=== PATIENT | male | born 1940 | race Caucasian/White ===

== ENCOUNTER 2020-03-28 02:32 | Inpatient (IN) | payer MEDICARE, OTHER ==
[~2020-03-28] VITALS: Ht 177.8 cm; Wt 68.9 kg
--- NOTE | 2020-03-28 02:46 | NUR ---
Jose from a nursing facility for c/o SOB and AMS. Pt currently with a saturation of 91 to 94% on a nonrebreather mask with 10LPM , pt awake and alert and seems to understands quetions and follows commands. was placed in bed 7 on a monitor,
[2020-03-28] MEDS ORDERED: methylPREDNISolone SOD SUCC 125 MG/2ML VIAL IV ONE (03:00)
[2020-03-28] MEDS ORDERED: ALBUTEROL FS 2.5 MG/3 ML VIAL.NEB CONTNEB ONE (03:00)
[2020-03-28] MEDS ORDERED: LEVOFLOXACIN 750 MG /D5W 150ML PIGGYBACK IV ONE (03:00)
[2020-03-28] MEDS ORDERED: IPRATROPIUM NEB FS 0.5 MG/2.5 ML AMPUL.NEB NEB ONE (03:00)
[2020-03-28] MEDS ORDERED: methylPREDNISolone SOD SUCC 125 MG/2ML VIAL ONE (03:08)
[2020-03-28] MEDS ORDERED: LEVOFLOXACIN 750 MG /D5W 150ML 150 ML IV ONE (03:08)
[2020-03-28 03:12] LABS: ABG BASE EXCESS -0.9 mmol/L; ABG OXYGEN SATURATION 76.8 % (92.0-98.5); ABG PCO2 82.3 mmHg (35.0-45.0); ABG PH 7.167 (7.350-7.450); ABG PO2 46.1 mmHg (75.0-100.0); AaDO2 364.5 mmHg; COHb 0.8 % (0.5-1.5); MetHb 0.6 % (0.0-1.5); O2Hb 75.7 % (94.0-97.0); VENT MODE, BG 18/5 RR24/70%
[2020-03-28] MEDS ORDERED: IPRATROPIUM NEB FS 0.5 MG/2.5 ML AMPUL.NEB ONE (03:20)
[2020-03-28] MEDS ORDERED: ALBUTEROL FS 2.5 MG/3 ML VIAL.NEB ONE (03:20)
[2020-03-28 03:24] LABS: BASOPHILS # (AUTO) 0.1 /CMM (0.0-0.2); BASOPHILS % (AUTO) 0.6 % (0.0-2.0); EOSINOPHILS % (AUTO) 0.2 % (0.0-6.0); HEMATOCRIT 30 % (39-51); HEMOGLOBIN 9.6 g/dL (13.5-17.5); LYMPHOCYTES # (AUTO) 0.6 /CMM (0.8-4.8); LYMPHOCYTES % (AUTO) 4.7 % (20.0-44.0); MEAN CORPUSCULAR HGB CONC 32 g/dl (31.0-36.0); MEAN CORPUSCULAR VOLUME 91 fL (80-96); MONOCYTES # (AUTO) 0.6 /CMM (0.1-1.30); MONOCYTES % (AUTO) 4.6 % (2.0-12.0); NEUTROPHILS # (AUTO) 10.9 /CMM (1.8-8.9); NEUTROPHILS % (AUTO) 89.9 % (43.0-81.0); PLATELET COUNT (AUTO) 136 /CMM (150-450); RED BLOOD CELL COUNT(AUTO) 3.33 MIL/uL (4.5-6.0); WHITE BLOOD COUNT (AUTO) 12.1 K/uL (4.3-11.0)
[2020-03-28 03:44] LABS: CALCIUM, SERUM 9.5 mg/dL (8.5-10.1); CARBON DIOXIDE 30 mmol/L (21-32); CHLORIDE 109 mmol/L (98-107); GLUCOSE 141 mg/dL (74-106); POTASSIUM 4.9 mmol/L (3.5-5.1); SODIUM SERUM 144 mmol/L (136-145); UREA NITROGEN, BLOOD 33 mg/dL (7-18)
[2020-03-28 03:47] LABS: ABG BASE EXCESS -0.5 mmol/L; ABG OXYGEN SATURATION 97.1 % (92.0-98.5); ABG PH 7.295 (7.350-7.450); ABG PO2 103.7 mmHg (75.0-100.0); AaDO2 189.8 mmHg; COHb 0.2 % (0.5-1.5); MetHb 0.4 % (0.0-1.5); O2Hb 96.5 % (94.0-97.0); SITE, ABG Right Brachial
[2020-03-28 03:57] LABS: ALANINE AMINOTRANSFERASE 13 U/L (12-78); ALKALINE PHOSPHATASE 82 U/L (46-116); ASPARTATE AMINOTRANSFERASE 19 U/L (15-37); B-TYPE NATRIURETIC PEPTIDE 31922 PG/ML (0-125); BILIRUBIN,DIRECT 0.1 mg/dL (0.0-0.2); BILIRUBIN,TOTAL 0.2 mg/dL (0.2-1.0); TOTAL PROTEIN, SERUM 7.3 g/dL (6.4-8.2)
--- NOTE | 2020-03-28 04:01 | NUR ---
CALL FROM LAB. RAPID COVID NEGATIVE.
[2020-03-28] MEDS ORDERED: AMIO200T5 PO (04:15)
[2020-03-28] MEDS ORDERED: ASCO500C18 PO (04:15)
[2020-03-28] MEDS ORDERED: CEFT2FRO2 IV (04:15)
[2020-03-28] MEDS ORDERED: TAMS-12 PO (04:15)
[2020-03-28] MEDS ORDERED: DOCU100T2 PO (04:15)
[2020-03-28] MEDS ORDERED: ZINC220C6 PO (04:15)
[2020-03-28] MEDS ORDERED: LACT1CAP61 PO (04:15)
[2020-03-28] MEDS ORDERED: CRAN425C6 PO (04:15)
[2020-03-28] MEDS ORDERED: MULT-447 PO (04:15)
[2020-03-28] MEDS ORDERED: BUME1TAB8 PO ×2 (04:15)
[2020-03-28] MEDS ORDERED: CRAN3875 PO (04:15)
[2020-03-28] MEDS ORDERED: NIFE60TA2 PO (04:15)
[2020-03-28] MEDS ORDERED: FOLI0.8T23 PO (04:15)
[2020-03-28] MEDS ORDERED: ATOR80TA PO (04:15)
[2020-03-28] MEDS ORDERED: CARV25TA2 PO (04:15)
[2020-03-28] MEDS ORDERED: POLY17PO4 PO (04:15)
[2020-03-28] MEDS ORDERED: PANT40TA2 PO (04:15)
[2020-03-28] MEDS ORDERED: NIFE30TA2 PO (04:15)
[2020-03-28] MEDS ORDERED: ENOXAPARIN SODIUM 80 MG/0.8 ML DISP.SYRIN SQ ONE ×2 (04:16→04:30)
[2020-03-28] MEDS ORDERED: ONDANSETRON HCL/PF 4 MG/2 ML VIAL IVP PRN (04:30)
[2020-03-28] MEDS ORDERED: LORAZEPAM INJ 2 MG/ML VIAL IV PRN (05:00)
[2020-03-28] MEDS ORDERED: FUROSEMIDE 40 MG/4 ML VIAL IV ONE (05:00)
[2020-03-28] MEDS ORDERED: ALBUTEROL FS 2.5 MG/0.5 ML VIAL.NEB NEB PRN (05:00)
[2020-03-28] MEDS ORDERED: NOREPINEPHRINE 8 MG in IV NS 0.9% 242 ML IV PRN (05:00)
--- NOTE | 2020-03-28 05:02 | NUR ---
pt in bed sleeping, arouses easily. breathing evenly on bipap. no s/s of distress or discomfort noted. will cont to monitor ,
--- NOTE | 2020-03-28 06:47 | NUR ---
pt awake, alert and reseponsive. remained on BIPAP . breathing evenly. no SOB. no distress. denied any pain or discomfort. attempted to admonister the Lasix as ordered by NANCIE Villatoro. however the BP remained low. will cont to monitor ,
--- NOTE | 2020-03-28 06:51 | NUR ---
ICU bed : 258
[2020-03-28] MEDS ORDERED: ALBUTEROL SULFATE 8 GM HFA.AER.AD IH PRN (07:00)
[2020-03-28] MEDS ORDERED: CLON0.5T4 PO (07:31)
[2020-03-28] MEDS ORDERED: INSU100V27 SQ (07:31)
[2020-03-28] MEDS ORDERED: COLL30OI TP (07:31)
[2020-03-28] MEDS ORDERED: ACET-868 PO (07:31)
[2020-03-28] MEDS ORDERED: CEFT2VIA64 IV (07:31)
[2020-03-28] MEDS ORDERED: MAGN400O6 PO (07:31)
[2020-03-28] MEDS ORDERED: XEROFORM TD (07:31)
--- NOTE | 2020-03-28 07:39 | NUR ---
report given to Ameya @ ICU
--- NOTE | 2020-03-28 08:00 | NUR ---
RN NOTES GOT REPORT FROM [facility] FROM ER.RECEIVED PT WITH ACLS PROTOCOL. WITH BIPAP MASK HOWVER MENTIONED TO RT PROTOCOL OF THE HOSPITAL IF PT IS FROM [facility] AND COVID PCR IS PENDING CANT BE ON BIPAP MASK. RT CHANGED TO O2 MASK 5 L SAT WELL IN 98%. ALERT AND ORIENTED X3. NO SOB OR RESPIRATORY DISTRESS NOTED. SAFETY MEASUREMENTS ARE IMPLEMENTED PER HOSPITAL PROTOCOL.BED IS IN THE LOWEST POSITION. SIDE RAILS ARE UP X2.WILL CONTUNIE TO MONITOR
[2020-03-28 08:14] LABS: C-REACTIVE PROTEIN 6.5 mg/dL (0.0-0.9)
[2020-03-28] MEDS ORDERED: PANTOPRAZOLE 40 MG VIAL IV SCH (09:00)
[2020-03-28] MEDS: FUROSEMIDE 100 MG/10 ML VIAL IV SCH ×3 (09:08→15:39)
[2020-03-28] MEDS: CEFTRIAXONE 1 G in IV D5W 50 ML IV SCH (09:09)
--- NOTE | 2020-03-28 09:30 | NUR ---
RN NOTES MAMIE CALLED FROM NUCLEAR MEDICINE TO GET CONSENT FROM THE PT FOR NUCLEAR MEDICINE FOR PULMONARY WITH VENTILATION STUDY
[2020-03-28] MEDS: AZITHROMYCIN 500 MG in IV D5W 250 ML IV SCH (11:25)
[2020-03-28 12:00] VITALS: BP 108/53
[2020-03-28 12:31] LABS: PHOSPHORUS 5.6 mg/dL (2.5-4.9)
[2020-03-28 12:32] LABS: THYROID STIMULATING HORMONE 1.13 uIU/mL (0.358-3.74)
--- NOTE | 2020-03-28 13:00 | NUR ---
RN NOTES TOOK PT WITH MAMIE TO NUCLEAR MEDICINE WITH ACLS PROTOCOL.
--- NOTE | 2020-03-28 14:30 | NUR ---
RN notes transferred pt to [place] to [facility] 2 floor room 201 from nuclear medicine pulmonary with ventilation study Patient is A/O x4, on NC @ 5 L, tolerating well, SPO2 is 98%, denies pain, PICC line noted on R upper arm, intact and patent, PACEMAKER ON left upper chest noted no sob or distress noted. tranferred with acls protocol.
--- NOTE | 2020-03-28 14:30 | NUR ---
MS-2 pantograph transferrer notes Received patient from Rosanna RN via bed, from CT scan. Patient is A/O x4, on NC @ 5 L, tolerating well, SPO2 is 98%, denies pain, PICC line noted on R upper arm, intact and patent, PACEMAKER ON left upper chest noted, HOB elevated, bed is locked in lowest position , call light in reach, will cont to monitor
--- NOTE | 2020-03-28 15:00 | NUR ---
TELE-MONITOR READINGS : V PACING AT 68, RANGE FROM 68-90
[2020-03-28] MEDS: methylPREDNISolone SOD SUCC 40 MG/ML VIAL IV SCH ×3 (15:39→21:32)
[2020-03-28 16:00] VITALS: BP 134/77
--- NOTE | 2020-03-28 17:00 | NUR ---
WOUND ASSESSED, PICTURES PLACED IN THE CHART
--- NOTE | 2020-03-28 17:25 | NUR ---
RN NOTE SPOKE WITH PATIENT AND PT'S ANUP ([phone]) ABOUT PATIENT CODE STATUS, BOTH VERBALIZED DNR/DNI, ENDORSE TO MD
--- NOTE | 2020-03-28 18:47 | NUR ---
SPOKE WITH PT'S RESIDENCE FACILITY ([facility]) ABOUT VACCINATION STATUS, PATIENT DO NOT HAVE ANY CURRENT VACCINE, WILL ADMINISTER UPON DISCHARGE
--- NOTE | 2020-03-28 18:59 | NUR ---
RN CLOSING NOTES PATIENT REMAINS IN BED, A/OX3-4, NPO STATUS, ON NC @ 5L TOLERATING WELL, NO SOB OR RESP DISTRESS NOTED, SPO2 IS 97%, TELE-MONITOR READINGS: V-PACING, WITH OCCASIONAL PVC @ 69, PICC LINE IS FLUSHED WELL, DRESSING IS INTACT,SKIN CARE, MOUTH CARE AND PERENNIAL CARE PROVIDED,SAFETY MEASURES IMPLEMENTED, BED IN LOWEST POSITION, CALL LIGHT IN REACH, WILL ENDORSE TO PM SHIFT RN FOR FRANCIS
[2020-03-28 20:00] VITALS: BP 144/65
[2020-03-28] MEDS ORDERED: ENOXAPARIN SODIUM 80 MG/0.8 ML DISP.SYRIN SQ SCH (21:00)
[2020-03-28 22:00] VITALS: BP 144/55
[2020-03-29] VITALS (28 sets, daily range): BP systolic 141–172; BP diastolic 34–90
--- NOTE | 2020-03-29 01:36 | NUR ---
TELE SENIOR GROUP MANAGER NOTES GOT CALLED FROM [employer] [facility] AND GOT RESULT FOR PCR COVID THAT NEGATIVE.
--- NOTE | 2020-03-29 04:00 | NUR ---
tele neurophysiologist notes while PRINCIPAL DATA ARCHITECT cleaning the patient , pt stated I can't breath . checked vital signs BP 133/66, pulse 67 and 02 sat 78. pt is on 3 liters at this time. put pt on simple mask at 6 liters , and called RT and cemetery workers supervisor as well. Blood sugar checked 164. skin warm to touch .
--- NOTE | 2020-03-29 04:55 | NUR ---
tele executive vp notes ABG result came out , Respiratory acidosis, per RT Zhen, called personnel quality assurance auditor MD and called rag room supervisor as well.
[2020-03-29] MEDS: methylPREDNISolone SOD SUCC 40 MG/ML VIAL IV SCH ×3 (05:02→20:17)
--- NOTE | 2020-03-29 05:15 | NUR ---
tele bookbinder apprentice notes got ordered to transferred pt to ICU per MD ordered . called Pallet Sorter and transferred Pt to ICU room 257 tracy ACLS PROTOCOL.
--- NOTE | 2020-03-29 05:25 | NUR ---
TELE CLAMSHELL OPERATOR NOTES PT AWAKE AND ALERT AND AWARE THAT HE WILL TRANSFERRED HIM TO ICU BECAUSE HE NEEDS BIPAP MACHINE FOR HIS BREATHING. O2 SAT THIS TIME 90 %. DENIES ANY PAIN . TELE SR PER MONITOR. GAVE REPORT TO ICU NURSE FOR CONTINUITY OF CARE.
--- NOTE | 2020-03-29 05:30 | NUR ---
PEDIATRIC ACUTE CARE UNIT NURSE PT TRANSFERRED TO ICU FROM 2S FOR INCREASING RESPIRATORY DISTRESS. PT WAS ON SIMPLE MASK AT 6L ON TRANSFER. RECEIVED PT AWAKE AND ALERT. ABLE TO SPEAK. RESP SLIGHTLY LABORED, USING ACCESSORY MUSCLES RATE 20'S WITH SPO2 96%. ABG WAS DRAWN IN 2S AND RESULTS WERE RELAYED TO Wenceslao TAI DNP RESULTING IN AN ORDER TO TRANSFER TO ICU. PT COVID NEG PER PCR. PT PLACED ON BIPAP ON ARRIVAL TO THE ICU AT 20/5 RR18 FIO2 30%. PT STATED THAT HE FELT BETTER AFTER BEING PLACED ON BIPAP. ABG TO BE OBTAINED IN 1H.
--- NOTE | 2020-03-29 05:35 | NUR ---
TELE DIET ASSISTANT NOTES' CALLED PT ANUP TO LET HER KNOW THAT HER TRANSFERRED TO ICU BECAUSE HE NEEDS A BIPAP TO HELPED FOR HIS BREATHING AND AT THE SAME TIME FOR FURTHER EVALUATION. I ALSO VERIFIED TO HER THE CODE STATUS OF THE PT . AND SHE WANTS HIS TO BE DNR/DNI PER PT REQUEST. CALLED SECONDARY EDUCATION PROFESSOR MD TO GET ORDER.
--- NOTE | 2020-03-29 05:45 | NUR ---
BIG DATA SOLUTIONS ARCHITECT NOTES CODE DNR/ DNI ORDERED BY MD PER PT REQUEST AND REQUEST WELL. ENDORSE TO ICU NURSE .
--- NOTE | 2020-03-29 06:00 | NUR ---
RT NOTE Pt transferred to ICU 257 on simple mask @ 6lpm. Pt placed on Bipap on noted settings as charted per critical abg results and MD orders. Abg to be taken within 1 hr. Alarms are set and audible. Ambu bag bedside. Bipap plugged into red outlet. Will continue to monitor. Addendum: 03/29/20 at 0602 by LARRY WANG RT Amended: Links added.
[2020-03-29 06:08] LABS: ABG BASE EXCESS -1.7 mmol/L; ABG OXYGEN SATURATION 93.6 % (92.0-98.5); ABG PH 7.135 (7.350-7.450); ABG PO2 87.1 mmHg (75.0-100.0); AaDO2 133.7 mmHg; COHb 0.4 % (0.5-1.5); MetHb 0.2 % (0.0-1.5); SITE, ABG Right Radial
[2020-03-29 06:43] LABS: ABG BASE EXCESS 0.7 mmol/L; ABG OXYGEN SATURATION 96.2 % (92.0-98.5); ABG PCO2 40.6 mmHg (35.0-45.0); ABG PH 7.413 (7.350-7.450); ABG PO2 84.8 mmHg (75.0-100.0); AaDO2 81.4 mmHg; COHb 0.3 % (0.5-1.5); MetHb 0.3 % (0.0-1.5); O2Hb 95.6 % (94.0-97.0); SITE, ABG Right Brachial; VENT MODE, BG S/T 20/5 18 30%
[2020-03-29 07:25] LABS: BASOPHILS % (AUTO) 0.1 % (0.0-2.0); HEMATOCRIT 28 % (39-51); HEMOGLOBIN 8.9 g/dL (13.5-17.5); LYMPHOCYTES # (AUTO) 0.6 /CMM (0.8-4.8); LYMPHOCYTES % (AUTO) 10.9 % (20.0-44.0); MEAN CORPUSCULAR HGB CONC 32 g/dl (31.0-36.0); MEAN CORPUSCULAR VOLUME 91 fL (80-96); MONOCYTES # (AUTO) 0.1 /CMM (0.1-1.30); MONOCYTES % (AUTO) 2.1 % (2.0-12.0); NEUTROPHILS # (AUTO) 4.9 /CMM (1.8-8.9); NEUTROPHILS % (AUTO) 86.9 % (43.0-81.0); PLATELET COUNT (AUTO) 125 /CMM (150-450); RED BLOOD CELL COUNT(AUTO) 3.04 MIL/uL (4.5-6.0); WHITE BLOOD COUNT (AUTO) 5.7 K/uL (4.3-11.0)
--- NOTE | 2020-03-29 07:30 | NUR ---
RN OPENING NOTES RECEIVED PATIENT IN BED, A/OX4, ON BIPAP; TOLERATING SETTINGS WELL, SPO2 IS 100%, TELE MONITOR READINGS SR WITH BBB AND OCCASIONAL PVC, LEFT SIDE PACEMAKER NOTED,R SIDE PICC LINE NOTED, DRESSING INTACT, FLUSHING WELL. DIET STATUS (CCHO) NOTED.ALLERGIES NOTED, PATIENT IS ABLE TO MAKE HIS NEEDS KNOW, SAFETY MEASURES IN PLACE, BED IS LOCKED, IN LOWEST POSITION, HOB ELEVATED, WILL CONT TO MONITOR
--- NOTE | 2020-03-29 07:39 | NUR ---
AWAKE AND ALERT PLACED INTO NASAL CANNULA @ 3 LPM O2 FLOW. SPO 98% HR 70 BPM RR 20 - 23 BPM BIPAP ON STAND BY @ BEDSIDE. Addendum: 03/29/20 at 0741 by RONN MERCADO RT Amended: Links added.
[2020-03-29 07:40] LABS: ALANINE AMINOTRANSFERASE 17 U/L (12-78); ALKALINE PHOSPHATASE 72 U/L (46-116); ASPARTATE AMINOTRANSFERASE 23 U/L (15-37); BILIRUBIN,TOTAL 0.3 mg/dL (0.2-1.0); CALCIUM, SERUM 9.6 mg/dL (8.5-10.1); CARBON DIOXIDE 26 mmol/L (21-32); CHLORIDE 107 mmol/L (98-107); CREATININE 2.3 mg/dL (0.6-1.3); GLUCOSE 165 mg/dL (74-106); MAGNESIUM 2.2 mg/dL (1.8-2.4); PHOSPHORUS 4.9 mg/dL (2.5-4.9); POTASSIUM 4.4 mmol/L (3.5-5.1); SODIUM SERUM 140 mmol/L (136-145); TOTAL PROTEIN, SERUM 6.9 g/dL (6.4-8.2); UREA NITROGEN, BLOOD 47 mg/dL (7-18)
[2020-03-29] MEDS: CEFTRIAXONE 1 G in IV D5W 50 ML IV SCH (09:01)
[2020-03-29] MEDS: CLONIDINE HCL 0.2MG/24H PTWK 1 EA PATCH TD SCH (10:06)
[2020-03-29] MEDS: PANTOPRAZOLE 40 MG TABLET.DR PO SCH (10:06)
[2020-03-29] MEDS: NITROGLYCERIN 30 GM TUBE TP SCH ×2 (10:07→20:18)
[2020-03-29] MEDS: AZITHROMYCIN 500 MG in IV D5W 250 ML IV SCH (10:39)
--- NOTE | 2020-03-29 14:44 | NUR ---
transferred to [facility] to room 109, by myself, will cont to monitor
[2020-03-29 15:14] LABS: *SPE A/G RATIO 0.6 (0.7-1.7); *SPE ALBUMIN 2.4 g/dL (2.9-4.4); *SPE ALPHA-1-GLOBULIN 0.4 g/dL (0.0-0.4); *SPE ALPHA-2-GLOBULIN 0.7 g/dL (0.4-1.0); *SPE BETA GLOBULIN 1.1 g/dL (0.7-1.3); *SPE GLOBULIN, TOTAL 4.1 g/dL (2.2-3.9); *SPE M-SPIKE Not Observed g/dL (Not Observed); *SPEGAMMA GLOBULIN 1.9 g/dL (0.4-1.8)
--- NOTE | 2020-03-29 16:27 | NUR ---
SPO2 drops to low 80s, on 4L of NC, reapply non rebreather mask @ 10L with SPO2 of 100%, RT notified, MD notified BP is 166/66
[2020-03-29] MEDS ORDERED: ALBUTEROL FS 2.5 MG/0.5 ML VIAL.NEB NEB PRN (16:30)
[2020-03-29 17:15] LABS: ABG BASE EXCESS 1.1 mmol/L; ABG OXYGEN SATURATION 95.3 % (92.0-98.5); ABG PH 7.347 (7.350-7.450); ABG PO2 81.2 mmHg (75.0-100.0); AaDO2 580.8 mmHg; COHb 0.3 % (0.5-1.5); MetHb 0.1 % (0.0-1.5); O2Hb 94.9 % (94.0-97.0); SITE, ABG Right Brachial; VENT MODE, BG NON REBREATHER
--- NOTE | 2020-03-29 17:23 | NUR ---
PLACED INTO BIPAP DUE TO INCREASED WORK OF BREATHING WITH PREVIOUS SETTINGS BELOW: IPAP 20 EPAP 5 RATE 18 FIO2 30% AMBU BAG @ BEDSIDE. Addendum: 03/29/20 at 1725 by RONN MERCADO RT Amended: Links added.
--- NOTE | 2020-03-29 17:51 | NUR ---
Holding Vibramycin till Bipap is over
--- NOTE | 2020-03-29 19:01 | NUR ---
RN CLOSING NOTE PATIENT REMAIN IN BED, UNDERGOING BIPAP TREATMENT WITH SETTINGS IPAP 20 , BIPAP 5 , RATE 18 , FIO2 30% AMBU BAG AT BEDSIDE, TOLERATING WELL, SPO2 IS 99%, CCHO DIET MAINTAINED, PICC LINE IS FLUSHED AND INTACT, PATIENT HAD 2BM, L HAND EDEMA PRESENT, COMFORT NEED ATTENDED, CALL LIGHT IN REACH, BED IS LOCKED IN LOWEST POSITION, WILL ENDORSE TO PM SHIFT RN FOR FRANCIS
--- NOTE | 2020-03-29 19:58 | NUR ---
RN NOTE SPOKE TO PHARMACY. OKAY TO GIVE OVERDUE DOXYCYCLINE AT THIS TIME.
[2020-03-29] MEDS: CLONIDINE HCL 0.1 MG TABLET PO PRN (20:19)
[2020-03-29] MEDS: ENOXAPARIN SODIUM 30 MG/0.3 ML DISP.SYRIN SQ SCH (20:23)
[2020-03-29 20:26] LABS: ABG BASE EXCESS 0.5 mmol/L; ABG OXYGEN SATURATION 96.8 % (92.0-98.5); ABG PCO2 37.8 mmHg (35.0-45.0); ABG PH 7.432 (7.350-7.450); ABG PO2 85.1 mmHg (75.0-100.0); AaDO2 84.4 mmHg; COHb 0.3 % (0.5-1.5); MetHb 0.1 % (0.0-1.5); O2Hb 96.4 % (94.0-97.0); SITE, ABG Right Brachial
--- NOTE | 2020-03-29 20:42 | NUR ---
RN NOTE ABG RESULTED. RT AT BEDSIDE REMOVED BIPAP AND PLACED PT ON 4L OF O2 VIA NC. NO INDICATIONS OF RESPIRATORY DISTRESS. PT NOW EATING DINNER AND TOLERATING WELL.
[2020-03-29] MEDS: DOXYCYCLINE HYCLATE (100 MG) 100 MG TABLET PO SCH (20:43)
--- NOTE | 2020-03-29 21:19 | NUR ---
RN NOTE RECHECKED BP POST ADMINISTRATION OF CATAPRES PO PRN, NOW 133/69
[2020-03-30] VITALS: BP 147/65
--- NOTE | 2020-03-30 | NUR ---
RN NOTE BED BATH/COMPLETE LINEN CHANGE AND AM CARE COMPLETED. PT TOLERATED WELL. VITAL SIGNS STABLE WHILE ON 4L OF O2 VIA NC.
[2020-03-30 04:00] VITALS: BP 163/61
[2020-03-30] MEDS: methylPREDNISolone SOD SUCC 40 MG/ML VIAL IV SCH ×3 (04:16→20:51)
[2020-03-30] MEDS: CLONIDINE HCL 0.1 MG TABLET PO PRN (04:27)
--- NOTE | 2020-03-30 05:27 | NUR ---
RN NOTE BLOOD PRESSURE RECHECKED 1 HOUR POST ADMINISTRATION OF CLONIDINE PO PRN. BP NOW 139/88.
[2020-03-30 06:03] LABS: BASOPHILS % (AUTO) 0.1 % (0.0-2.0); HEMATOCRIT 29 % (39-51); HEMOGLOBIN 9.2 g/dL (13.5-17.5); LYMPHOCYTES # (AUTO) 0.5 /CMM (0.8-4.8); LYMPHOCYTES % (AUTO) 7.2 % (20.0-44.0); MEAN CORPUSCULAR HGB CONC 32 g/dl (31.0-36.0); MEAN CORPUSCULAR VOLUME 91 fL (80-96); MONOCYTES # (AUTO) 0.2 /CMM (0.1-1.30); MONOCYTES % (AUTO) 3.1 % (2.0-12.0); NEUTROPHILS # (AUTO) 6.5 /CMM (1.8-8.9); NEUTROPHILS % (AUTO) 89.6 % (43.0-81.0); PLATELET COUNT (AUTO) 136 /CMM (150-450); RED BLOOD CELL COUNT(AUTO) 3.16 MIL/uL (4.5-6.0); WHITE BLOOD COUNT (AUTO) 7.3 K/uL (4.3-11.0)
--- NOTE | 2020-03-30 06:46 | NUR ---
RN NOTE PT SLEEPING COMFORTABLY IN BED. NO SIGNS OF PAIN OR DISCOMFORT. ON 4L OF O2 VIA NC. ON CONTINUOUS PULSE OX WITH STABLE O2 SATURATION. RESPIRATIONS EVEN AND UNLABORED, RIGHT UPPER ARM PICC FLUSHED AND PATENT. ALL NEEDS MET AND ATTENDED TO , WILL ENDORSE TO MORNING RN FOR FRANCIS.
[2020-03-30 07:00] LABS: ALANINE AMINOTRANSFERASE 16 U/L (12-78); ALBUMIN 2.1 g/dL (3.4-5.0); ALKALINE PHOSPHATASE 69 U/L (46-116); ASPARTATE AMINOTRANSFERASE 18 U/L (15-37); BILIRUBIN,TOTAL 0.3 mg/dL (0.2-1.0); CALCIUM, SERUM 9.6 mg/dL (8.5-10.1); CARBON DIOXIDE 27 mmol/L (21-32); CHLORIDE 106 mmol/L (98-107); CREATININE 2.5 mg/dL (0.6-1.3); GLUCOSE 162 mg/dL (74-106); MAGNESIUM 2.2 mg/dL (1.8-2.4); PHOSPHORUS 3.7 mg/dL (2.5-4.9); SODIUM SERUM 140 mmol/L (136-145); UREA NITROGEN, BLOOD 60 mg/dL (7-18)
--- NOTE | 2020-03-30 07:30 | NUR ---
RN Opening note Received patient in bed sleeping, AO x 2 -3 able to responds all stimuli. Does no appears pain or distress, skin is warm to touch keep clean/dry, intact piccline and good patent with flash. Respiratory even and unlabored with oxygen at 4LPM via n/c, no sob or respiratory distress observed. Kept locked bed with elevated HOB for ensure airway and aspiration precaution and lowest position for safety. Call light within reach, will continue to monitor.
[2020-03-30] MEDS: PANTOPRAZOLE 40 MG TABLET.DR PO SCH (07:53)
--- NOTE | 2020-03-30 08:17 | NUR ---
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 RECOMMENDATIONS MADE FOR SKIN PROTECTION. DISCUSSED WITH NURSING STAFF. RECOMMEND SURGICAL AND DPM CONSULTS. DR LANDEROS AND DR KOENIG NOTIFIED OF CONSULT. [facility] IN AGREEMENT WITH PLAN OF CARE. Addendum: 03/30/20 at 0819 by JE BARRY WNDNU Amended: Links added.
[2020-03-30] MEDS ORDERED: Z GUARD REMEDY 2 OZ OINT TP PRN (08:30)
[2020-03-30] MEDS ORDERED: BUMETANIDE INJ 8 MG in IV NS 0.9% 48 ML IV ONE (08:30)
[2020-03-30] MEDS: NITROGLYCERIN 30 GM TUBE TP SCH ×4 (09:00→20:53)
[2020-03-30] MEDS: CEFTRIAXONE 1 G in IV D5W 50 ML IV SCH (09:33)
[2020-03-30] MEDS: hydrALAZINE HCL 50 MG TABLET PO SCH ×3 (09:34→16:32)
[2020-03-30] MEDS: DOXYCYCLINE HYCLATE (100 MG) 100 MG TABLET PO SCH ×2 (09:34→20:51)
[2020-03-30] MEDS: Z GUARD REMEDY 2 OZ OINT TP SCH (09:35)
--- NOTE | 2020-03-30 09:51 | NUR ---
Nitrol ointment duplicated, will hold second Nitrol Ointment.
[2020-03-30 10:19] VITALS: BP 169/70
[2020-03-30 12:00] VITALS: BP 166/61
[2020-03-30] MEDS: VITAMINS A AND D 56.7 GM TUBE TP SCH (16:32)
--- NOTE | 2020-03-30 17:34 | NUR ---
RN Closing Note Patient in bed resting comfortably, does no appears pain or discomfort. Skin is warm to touch, keep clean/dry, intact picc line, given skin care on bilateral lower leg. Respiratory even and unlabored with oxygen at 4LPM and O2sat 98%. Kept locked bed with elevated HOB for ensure airway and aspiration precaution also lowest portion for safety at all times. Call light within reach, will endorse machinist 2nd shift.
--- NOTE | 2020-03-30 19:15 | NUR ---
RN NOTE RECEIVED PATIENT IN BED RESTING, WATCHING TV. PATIENT IS AWAKE, ALERT,ORIENTED X3. ABLE TO MAKE NEEDS KNOWN IN UPPER SORBIAN. SPEECH IS CLEAR. BREATHING IS EVEN AND UNLABORED. O2 SAT IS 98% ON 4 LITERS O2 VIA NC. IV SITE ON RIGHT UPPER ARM, PICC IS CLEAN, DRY, AND PATENT. PATIENT HAS PACEMAKER ON LEFT UPPER CHEST. PATIENT IS INCONTINENT OF BOWEL AND BLADDER. SKIN IS WARM TO TOUCH AND DRY. NOTED WOUND DRESSINGS ON BILATERAL LOWER EXTREMITIES. PER AM SHIFT REPORT, PATIENT HAS SACRAL WOUND WITH DRESSING REINFORCED. IN NO APPARENT DISTRESS NOTED. NO COMPLAINTS OF ANY PAIN AT THIS TIME. BED IS LOWERED AND LOCKED FOR SAFETY. CALL LIGHT IS WITHIN EASY REACH. WILL CONTINUE TO MONITOR.
[2020-03-30 20:00] VITALS: BP 151/67
[2020-03-30] MEDS: ENOXAPARIN SODIUM 30 MG/0.3 ML DISP.SYRIN SQ SCH (20:53)
[2020-03-31] VITALS: BP 144/53
[2020-03-31 04:00] VITALS: BP 166/49
[2020-03-31] MEDS: CLONIDINE HCL 0.1 MG TABLET PO PRN (04:09)
[2020-03-31] MEDS: methylPREDNISolone SOD SUCC 40 MG/ML VIAL IV SCH ×2 (04:09→21:27)
[2020-03-31 06:30] LABS: HEMATOCRIT 27 % (39-51); HEMOGLOBIN 8.6 g/dL (13.5-17.5); LYMPHOCYTES # (AUTO) 0.4 /CMM (0.8-4.8); MEAN CORPUSCULAR HGB CONC 32 g/dl (31.0-36.0); MEAN CORPUSCULAR VOLUME 89 fL (80-96); MONOCYTES # (AUTO) 0.2 /CMM (0.1-1.30); MONOCYTES % (AUTO) 3.9 % (2.0-12.0); NEUTROPHILS # (AUTO) 4.7 /CMM (1.8-8.9); NEUTROPHILS % (AUTO) 88.1 % (43.0-81.0); PLATELET COUNT (AUTO) 115 /CMM (150-450); RED BLOOD CELL COUNT(AUTO) 2.97 MIL/uL (4.5-6.0); WHITE BLOOD COUNT (AUTO) 5.3 K/uL (4.3-11.0)
[2020-03-31 06:38] LABS: ALANINE AMINOTRANSFERASE 14 U/L (12-78); ALKALINE PHOSPHATASE 59 U/L (46-116); ASPARTATE AMINOTRANSFERASE 11 U/L (15-37); BILIRUBIN,TOTAL 0.3 mg/dL (0.2-1.0); CALCIUM, SERUM 8.8 mg/dL (8.5-10.1); CARBON DIOXIDE 26 mmol/L (21-32); CHLORIDE 108 mmol/L (98-107); CREATININE 2.6 mg/dL (0.6-1.3); GLUCOSE 213 mg/dL (74-106); MAGNESIUM 1.9 mg/dL (1.8-2.4); PHOSPHORUS 3.4 mg/dL (2.5-4.9); POTASSIUM 3.8 mmol/L (3.5-5.1); SODIUM SERUM 143 mmol/L (136-145); TOTAL PROTEIN, SERUM 6.3 g/dL (6.4-8.2); UREA NITROGEN, BLOOD 68 mg/dL (7-18)
--- NOTE | 2020-03-31 07:09 | NUR ---
RN NOTE PATIENT REMAINED STABLE THROUGHOUT THE NIGHT. NO SIGNIFICANT CHANGES NOTED. PATIENT IS KEPT CLEAN, DRY, AND COMFORTABLE. REPOSITIONED Q2H. ALL WOUND CARE RENDERED ORDERED. WILL ENDORSE TO AM SHIFT RN FOR CONTINUATION OF CARE.
--- NOTE | 2020-03-31 07:15 | NUR ---
PT AWAKE IN BED. ALERT AND ORIENTED X3. SR ON TELE 60-80S. RESPIRATIONS EVEN AND UNALABORED WITH SPO2 >94% ON NC 3L/MIN. [place] PICC INTACT, DRESSING DRY AND INTACT. NO SIGNS OF INFILTRATION. SKIN WARM AND FLUSHED. DENIES PAIN OR SOB. NO SIGNS OF DISTRESS. ALL HOSPITAL POLICY SAFETY PRECAUTIONS IMPLEMENTED.
[2020-03-31 08:00] VITALS: BP 156/66
[2020-03-31] MEDS: PANTOPRAZOLE 40 MG TABLET.DR PO SCH (09:02)
[2020-03-31] MEDS: NITROGLYCERIN 30 GM TUBE TP SCH ×2 (09:02→20:38)
[2020-03-31] MEDS: CEFTRIAXONE 1 G in IV D5W 50 ML IV SCH (09:02)
[2020-03-31] MEDS: DOXYCYCLINE HYCLATE (100 MG) 100 MG TABLET PO SCH ×2 (09:02→20:37)
[2020-03-31] MEDS: hydrALAZINE HCL 50 MG TABLET PO SCH ×3 (09:02→17:44)
[2020-03-31] MEDS: VITAMINS A AND D 56.7 GM TUBE TP SCH ×2 (09:03→17:44)
[2020-03-31] MEDS: Z GUARD REMEDY 2 OZ OINT TP SCH (09:03)
[2020-03-31] MEDS ORDERED: INFLUENZA VACCINE 2020-21 0.5 ML DISP.SYRIN IM ONE (09:30)
[2020-03-31] MEDS ORDERED: BUMETANIDE INJ 8 MG in IV NS 0.9% 48 ML IV ONE (10:00)
[2020-03-31 12:00] VITALS: BP 156/66
[2020-03-31 16:00] VITALS: BP 151/78
--- NOTE | 2020-03-31 18:25 | NUR ---
PT AWAKE IN BED. SR ON TELE 60S. RESPIRATIONS EVEN AND UNALABORED WITH SPO2 >98% ON NC 3L/MIN. [place] PICC INTACT AND FLUSHED, DRESSING DRY AND INTACT. NO SIGNS OF INFILTRATION. SKIN WARM AND FLUSHED. DENIED PAIN OR SOB. NO SIGNS OF DISTRESS THROUGHOUT SHIFT. ALL ORDERS IMPLEMENTED. PT TOLERATING WELL. ALL HOSPITAL POLICY SAFETY PRECAUTIONS IMPLEMENTED. WILL ENDORSE TO PM RN FOR CONTINUATION OF CARE.
[2020-03-31 20:00] VITALS: BP 166/44
--- NOTE | 2020-03-31 20:00 | NUR ---
rn telephonic opening note received pt in bed. a/o x4.watching tv. breathing even and unlabored in 2L of oxygen. Denies any pain or discomfort. jenna picc line noted. patent and intact. dressing clean and dry. all needs rendered. kept clean and dry. call light within reach. srx2 up. bed in lowest position. will continue to monitor.
[2020-03-31] MEDS: ENOXAPARIN SODIUM 30 MG/0.3 ML DISP.SYRIN SQ SCH (20:37)
--- NOTE | 2020-03-31 21:38 | NUR ---
rn note pt noted with sbp of 166/49 at 1999 , nitrol oint 1gm applied on right chest well. sbp rechecked after 1hr sbp noted at 150/60.
[2020-04-01] VITALS: BP 163/56
--- NOTE | 2020-04-01 01:02 | NUR ---
sheet metal work furnace installer note sbp noted at 163/56 at 12am, catapres 0.1mg po prn for sbp >150 given .bp rechecked noted at 138/76.
[2020-04-01] MEDS: CLONIDINE HCL 0.1 MG TABLET PO PRN (01:23)
[2020-04-01 04:00] VITALS: BP 168/54
--- NOTE | 2020-04-01 04:00 | NUR ---
television actor note paged ac abbott regarding patient's sbp 168/54. awaiting for response.
--- NOTE | 2020-04-01 05:00 | NUR ---
rn telehealth note Response received from [facility] FORESTRY WORKER with nno noted. pt in bed asleep but easily arousable . Breathing even and unlabored.No sob or acute distress. Denies any form of pain.
--- NOTE | 2020-04-01 06:32 | NUR ---
BEATER LEAD CLOSING NOTE PT IN BED ASLEEP BUT EASILY AROUSABLE. BREATHING EVEN AND UNLABORED IN 2LPM OF OXYGEN. DENIES ANY PAIN OR DISCOMFORT. [place] PICC PATENT AND INTACT. KEPT CLEAN AND DRY. 1000ML OF URINE OUTPUT NOTED. X2 BM SOFT AND FORMED. REPOSITIONED Q2. ALL NEEDS RENDERED . WILL ENDORSE TO AM NURSE FOR CONTINUITY OF CARE.
--- NOTE | 2020-04-01 07:21 | NUR ---
TELE/RN OPINING NOTES RECEIVED PATIENT AWAKE ON BED.ALERT AND ORIENTED X4. PATIENT IN NO APPARENT RESPIRATORY DISTRESS NOTED. DENIES PAIN AT THIS TIME. TELE MONITOR IN PLACE READING SR WITH PVC 67 BPM. WILL CONTINUE TO MONITOR.
[2020-04-01 07:28] LABS: HEMATOCRIT 29 % (39-51); HEMOGLOBIN 9.4 g/dL (13.5-17.5); LYMPHOCYTES # (AUTO) 0.4 /CMM (0.8-4.8); LYMPHOCYTES % (AUTO) 5.8 % (20.0-44.0); MEAN CORPUSCULAR HGB CONC 32 g/dl (31.0-36.0); MEAN CORPUSCULAR VOLUME 89 fL (80-96); MONOCYTES # (AUTO) 0.3 /CMM (0.1-1.30); MONOCYTES % (AUTO) 3.5 % (2.0-12.0); NEUTROPHILS # (AUTO) 6.8 /CMM (1.8-8.9); NEUTROPHILS % (AUTO) 90.7 % (43.0-81.0); PLATELET COUNT (AUTO) 132 /CMM (150-450); RED BLOOD CELL COUNT(AUTO) 3.28 MIL/uL (4.5-6.0); WHITE BLOOD COUNT (AUTO) 7.5 K/uL (4.3-11.0)
[2020-04-01] MEDS: PANTOPRAZOLE 40 MG TABLET.DR PO SCH (07:41)
[2020-04-01 08:00] VITALS: BP 179/61
[2020-04-01 08:33] LABS: ALANINE AMINOTRANSFERASE 13 U/L (12-78); ALKALINE PHOSPHATASE 58 U/L (46-116); ASPARTATE AMINOTRANSFERASE 12 U/L (15-37); BILIRUBIN,TOTAL 0.3 mg/dL (0.2-1.0); CARBON DIOXIDE 27 mmol/L (21-32); CHLORIDE 107 mmol/L (98-107); CREATININE 2.3 mg/dL (0.6-1.3); GLUCOSE 197 mg/dL (74-106); MAGNESIUM 1.8 mg/dL (1.8-2.4); PHOSPHORUS 3.4 mg/dL (2.5-4.9); POTASSIUM 3.9 mmol/L (3.5-5.1); SODIUM SERUM 144 mmol/L (136-145); TOTAL PROTEIN, SERUM 6.2 g/dL (6.4-8.2); UREA NITROGEN, BLOOD 68 mg/dL (7-18)
[2020-04-01] MEDS: DOXYCYCLINE HYCLATE (100 MG) 100 MG TABLET PO SCH (08:48)
[2020-04-01] MEDS: hydrALAZINE HCL 50 MG TABLET PO SCH ×3 (08:50→16:19)
[2020-04-01] MEDS: NITROGLYCERIN 30 GM TUBE TP SCH (08:50)
[2020-04-01] MEDS: CEFTRIAXONE 1 G in IV D5W 50 ML IV SCH (08:51)
[2020-04-01] MEDS ORDERED: BUMETANIDE INJ 16 MG in IV NS 0.9% 16 ML IV ONE (10:00)
[2020-04-01] MEDS: METOLAZONE 2.5 MG TABLET PO SCH (10:15)
[2020-04-01] MEDS: Z GUARD REMEDY 2 OZ OINT TP SCH (10:42)
[2020-04-01] MEDS: VITAMINS A AND D 56.7 GM TUBE TP SCH ×2 (10:42→16:20)
--- NOTE | 2020-04-01 15:41 | NUR ---
MS/RN NOTES ANUP RESENDIZ () WANT TO TALK TO DOCTOR, DR. BATISTA IS AWARE.
--- NOTE | 2020-04-01 19:27 | NUR ---
MS/RN CLOSING NOTES PATIENT IS ON BED.ALERT AND ORIENTED X4. PATIENT IN NO APPARENT RESPIRATORY DISTRESS NOTED. DENIES PAIN AT THIS TIME. IV ACCESS AT RIGHT UPPER ARM PICC LINE PATENT AND INTACT.SEEN AND EXAMINED BY MD WITH ORDERS MADE AND CARRIED OUT. ALL DUE MEDICATION WAS GIVE. SAFETY PRECAUTION WAS IN PLACED. BED IN LOWEST POSITION AND LOCKED. SIDERAILS UP X2. CALL LIGHT WITHIN REACH. WILL ENDORSED TO CRICKET COACH FOR FRANCIS.
[2020-04-01 20:00] VITALS: BP 156/53
--- NOTE | 2020-04-01 20:00 | NUR ---
RN NOTE PT RECEIVED IN BED A/A/O X4. PT IS ON 4 L VIA NC SATING 100%. PT HAS UNLABORED BREATHING. SAFETY MEASURES IN PLACE.
[2020-04-02] MEDS: DOXYCYCLINE HYCLATE (100 MG) 100 MG TABLET PO SCH ×2 (00:51→12:47)
[2020-04-02] MEDS: ENOXAPARIN SODIUM 30 MG/0.3 ML DISP.SYRIN SQ SCH (00:52)
[2020-04-02] MEDS: NITROGLYCERIN 30 GM TUBE TP SCH ×2 (00:53→12:47)
[2020-04-02] MEDS: methylPREDNISolone SOD SUCC 40 MG/ML VIAL IV SCH ×2 (00:55→08:37)
[2020-04-02 04:00] VITALS: BP 168/61
[2020-04-02] MEDS: CLONIDINE HCL 0.1 MG TABLET PO PRN (05:09)
[2020-04-02 05:56] LABS: BASOPHILS % (AUTO) 0.1 % (0.0-2.0); HEMATOCRIT 32 % (39-51); HEMOGLOBIN 10.3 g/dL (13.5-17.5); LYMPHOCYTES # (AUTO) 0.4 /CMM (0.8-4.8); LYMPHOCYTES % (AUTO) 4.7 % (20.0-44.0); MEAN CORPUSCULAR HGB CONC 32 g/dl (31.0-36.0); MEAN CORPUSCULAR VOLUME 90 fL (80-96); MONOCYTES # (AUTO) 0.4 /CMM (0.1-1.30); MONOCYTES % (AUTO) 4.8 % (2.0-12.0); NEUTROPHILS # (AUTO) 7.4 /CMM (1.8-8.9); NEUTROPHILS % (AUTO) 90.4 % (43.0-81.0); PLATELET COUNT (AUTO) 145 /CMM (150-450); RED BLOOD CELL COUNT(AUTO) 3.57 MIL/uL (4.5-6.0); WHITE BLOOD COUNT (AUTO) 8.2 K/uL (4.3-11.0)
[2020-04-02 06:07] LABS: ALANINE AMINOTRANSFERASE 11 U/L (12-78); ALKALINE PHOSPHATASE 59 U/L (46-116); ASPARTATE AMINOTRANSFERASE 13 U/L (15-37); BILIRUBIN,TOTAL 0.3 mg/dL (0.2-1.0); CALCIUM, SERUM 9.1 mg/dL (8.5-10.1); CARBON DIOXIDE 30 mmol/L (21-32); CHLORIDE 107 mmol/L (98-107); CREATININE 2.4 mg/dL (0.6-1.3); GLUCOSE 219 mg/dL (74-106); MAGNESIUM 1.9 mg/dL (1.8-2.4); PHOSPHORUS 3.5 mg/dL (2.5-4.9); POTASSIUM 4.3 mmol/L (3.5-5.1); SODIUM SERUM 144 mmol/L (136-145); TOTAL PROTEIN, SERUM 6.1 g/dL (6.4-8.2); UREA NITROGEN, BLOOD 70 mg/dL (7-18)
--- NOTE | 2020-04-02 07:26 | NUR ---
RN NOTE PT REMAINED STABLE, NO ACUTE CHANGES REPORT GIVEN TO INCOMING SHIFT.
--- NOTE | 2020-04-02 07:30 | NUR ---
MS RN AM NOTE RECEIVED PT IN BED A/A/O X4. PT IS ON 4 L VIA NC WITH 100% SATURATION.RESPIRATION UNLABORED. NO SOB. DENIES PAIN OR DISCOMFORT AT THIS TIME. [place] PICC LINE FLUSHES WELL, SITE CLEAR. SEE NURSING FLOWSHEET FOR SKIN ISSUES. [facility], STRICT INPUT AND OUTPUT. INDEPENDENT OF BED MOBILITY. SAFETY MEASURES IN PLACE. BED LOW LOCKED. CALL LIGHT WITHIN REACH. WILL CONT TO MONITOR
[2020-04-02] MEDS: PANTOPRAZOLE 40 MG TABLET.DR PO SCH (07:54)
[2020-04-02 08:00] VITALS: BP 171/65
[2020-04-02] MEDS: Z GUARD REMEDY 2 OZ OINT TP SCH (08:36)
[2020-04-02] MEDS: VITAMINS A AND D 56.7 GM TUBE TP SCH ×2 (08:36→17:20)
[2020-04-02] MEDS: METOLAZONE 2.5 MG TABLET PO SCH (08:37)
[2020-04-02] MEDS: hydrALAZINE HCL 50 MG TABLET PO SCH ×3 (08:38→17:20)
[2020-04-02] MEDS: CEFTRIAXONE 1 G in IV D5W 50 ML IV SCH (08:39)
[2020-04-02] MEDS: AMLODIPINE BESYLATE 5 MG TABLET PO SCH (08:39)
--- NOTE | 2020-04-02 09:30 | NUR ---
RN NOTES DUE MEDS GIVEN
[2020-04-02 12:00] VITALS: BP 153/64
[2020-04-02] MEDS ORDERED: methylPREDNISolone SOD SUCC 40 MG/ML VIAL IV SCH (13:00)
[2020-04-02 16:00] VITALS: BP 154/62
--- NOTE | 2020-04-02 18:25 | NUR ---
MS RN CLOSING NOTE PT IN BED RESTING, A/A/O X4. PT IS ON 4 L VIA NC WITH 100% SATURATION.RESPIRATION UNLABORED. NO SOB. DENIES PAIN OR DISCOMFORT AT THIS TIME. [place] PICC LINE FLUSHES WELL, SITE CLEAR. ON CCHO DIET, STRICT INPUT AND OUTPUT. INDEPENDENT OF BED MOBILITY. SAFETY MEASURES IN PLACE. BED LOW LOCKED. CALL LIGHT WITHIN REACH. ALL NEEDS MET. PRESCRIBED WOUND CARE AND PM CARE DONE, ASSISTED WITH TURNING AND REPOSITIONING Q 2 HOURS. NO OTHER SIGNIFICANT CHANGE IN CONDITION. WILL ENDORSE TO NEXT SHIFT FOR FRANCIS.
[2020-04-02 20:00] VITALS: BP 144/49
--- NOTE | 2020-04-02 20:00 | NUR ---
MS RN NOTE PT IN BED AWAKE. A/O X 3, NO SOB NO DISTRESS OR DISCOMFORT NOTED. DENIES PAIN. ON O2 4L VIA NC O2 SAT 99%. [place] PICC LINE INTACT AND PATENT. REPOSITION HIM FOR SKIN MANAGEMENT AND WILL DO Q2H. ALL NEEDS ATTENDED. SIDE RAILS UP X 2 AND CALL LIGHT WITHIN REACH. CONTINUE TO MONITOR HIM.
[2020-04-03] VITALS: BP 144/46
[2020-04-03] MEDS: DOXYCYCLINE HYCLATE (100 MG) 100 MG TABLET PO SCH ×2 (01:30→12:44)
[2020-04-03] MEDS: NITROGLYCERIN 30 GM TUBE TP SCH ×2 (01:30→12:43)
[2020-04-03] MEDS: ENOXAPARIN SODIUM 30 MG/0.3 ML DISP.SYRIN SQ SCH ×2 (01:32→23:59)
[2020-04-03 04:00] VITALS: BP 152/53
--- NOTE | 2020-04-03 06:35 | NUR ---
MS RN NOTE PT IN BED AWAKE. NO DISTRESS OR DISCOMFORT NOTED. DENIES PAIN. REMAIN ON 4L VIA N/C O2 SAT 98%. [place] PICC LINE INTACT AND PATENT. BED BATH GIVEN. ALL NEEDS ATTENDED. REPOSITION HIM Q2H, KEPT HIM DRY AND CLEAN. SIDE RAILS UP X 2 AND CALL LIGHT WITHIN REACH. WILL ENDORSE TO DAY SHIFT NURSE FOR CONTINUE TO CARE.
--- NOTE | 2020-04-03 08:00 | NUR ---
RN OPENING NOTE Patient is resting in bed, A/O x4, showing no signs of acute distress or SOB, saturating 93% on 1L NC. [place] PICC line is clean and intact flushing well. Left chest wall pacemaker noted. Patient denies pain and discomfort at this time. Bed is in lowest position, side rails x3 in upright position, call light is within reach, fall safety and aspiration precautions enforced. Will continue with plan of care.
[2020-04-03] MEDS: Z GUARD REMEDY 2 OZ OINT TP SCH (09:09)
[2020-04-03] MEDS: VITAMINS A AND D 56.7 GM TUBE TP SCH ×2 (09:10→17:04)
[2020-04-03] MEDS: methylPREDNISolone SOD SUCC 40 MG/ML VIAL IV SCH (09:10)
[2020-04-03] MEDS: METOLAZONE 2.5 MG TABLET PO SCH (09:10)
[2020-04-03] MEDS: CEFTRIAXONE 1 G in IV D5W 50 ML IV SCH (09:10)
[2020-04-03] MEDS: PANTOPRAZOLE 40 MG TABLET.DR PO SCH (09:11)
[2020-04-03] MEDS: hydrALAZINE HCL 50 MG TABLET PO SCH ×3 (09:11→17:03)
[2020-04-03] MEDS: AMLODIPINE BESYLATE 5 MG TABLET PO SCH (09:11)
[2020-04-03 09:22] LABS: ABG OXYGEN SATURATION 97.6 % (92.0-98.5); ABG PCO2 41.4 mmHg (35.0-45.0); ABG PH 7.439 (7.350-7.450); ABG PO2 95.6 mmHg (75.0-100.0); AaDO2 55.2 mmHg; COHb 0.4 % (0.5-1.5); MetHb 0.3 % (0.0-1.5); O2Hb 96.9 % (94.0-97.0); SITE, ABG Right Brachial; VENT MODE, BG nasal cannula
--- NOTE | 2020-04-03 09:25 | NUR ---
O2 flow decreased from 2 liter to 1 lpm o2 flow due to 99% spo2 and 96 pao2. Addendum: 04/03/20 at 0926 by RONN MERCADO RT Amended: Links added.
[2020-04-03 12:00] VITALS: BP 146/52
--- NOTE | 2020-04-03 15:35 | NUR ---
RN NOTE Patient is scheduled to have Permacath placement tomorrow at 2pm per Dr. Bundy. NPO after midnight tonight.
--- NOTE | 2020-04-03 16:54 | NUR ---
RN NOTE Patient refused to sign procedure consent unless discussed with MD. Notified MD to discuss procedure with patient and call patient's .
--- NOTE | 2020-04-03 19:00 | NUR ---
RN CLOSING NOTE Patient is resting in bed, A/O x4, showing no signs of acute distress or SOB, saturating 93% on 1L NC. [place] PICC line is clean and intact flushing well. Left chest wall pacemaker noted. Patient denies pain and discomfort during my shift. All patient needs met, all due medications given, patient kept clean and dry throughout shift. Bed is in lowest position, side rails x3 in upright position, call light is within reach, fall safety and aspiration precautions enforced. Will endorse to night supervisor.
--- NOTE | 2020-04-03 19:02 | NUR ---
RN NOTE Patient agreed to sign consent forms. Consent signed and placed in chart.
--- NOTE | 2020-04-03 19:10 | NUR ---
MS RN NOTES RECEIVED PT IN BED AWAKE AND ABLE TO MAKE NEEDS KNOWN. PT A/OX 3. RESPIRATIONS EVEN AND UNLABORED WITH NO S/S OF ACUTE DISTRESS OR SOB NOTED. NO COMPLAINTS OF PAIN AT THIS TIME. BED IN LOWEST LOCKED POSITION WITH SIDE RAILS UP X2. CALL LIGHT WITHIN REACH. WILL CONTINUE TO MONITOR.
[2020-04-03 20:00] VITALS: BP 127/48
--- NOTE | 2020-04-03 20:35 | NUR ---
MS RN NOTES NOTIFIED DR ABOUT PROCEDURE 04/04, PT TO GET VIBRAMYCIN AND LOVENOX. ORDER TO HOLD LOVENOX AND TO GIVE VIBRAMYCIN WITH SMALL SIPS OF WATER. WILL CONTINUE TO MONITOR.
[2020-04-04] MEDS: NITROGLYCERIN 30 GM TUBE TP SCH ×2 (00:07→12:49)
[2020-04-04 04:00] VITALS: BP 157/55
[2020-04-04 06:04] LABS: BASOPHILS % (AUTO) 0.1 % (0.0-2.0); HEMATOCRIT 34 % (39-51); HEMOGLOBIN 10.9 g/dL (13.5-17.5); LYMPHOCYTES # (AUTO) 0.6 /CMM (0.8-4.8); LYMPHOCYTES % (AUTO) 6.1 % (20.0-44.0); MEAN CORPUSCULAR HGB CONC 32 g/dl (31.0-36.0); MEAN CORPUSCULAR VOLUME 90 fL (80-96); MONOCYTES # (AUTO) 0.9 /CMM (0.1-1.30); MONOCYTES % (AUTO) 9.7 % (2.0-12.0); NEUTROPHILS # (AUTO) 8.2 /CMM (1.8-8.9); NEUTROPHILS % (AUTO) 84.1 % (43.0-81.0); PLATELET COUNT (AUTO) 132 /CMM (150-450); RED BLOOD CELL COUNT(AUTO) 3.72 MIL/uL (4.5-6.0); WHITE BLOOD COUNT (AUTO) 9.7 K/uL (4.3-11.0)
[2020-04-04 06:17] LABS: CALCIUM, SERUM 9.2 mg/dL (8.5-10.1); CARBON DIOXIDE 28 mmol/L (21-32); CHLORIDE 104 mmol/L (98-107); CREATININE 2.1 mg/dL (0.6-1.3); GLUCOSE 239 mg/dL (74-106); POTASSIUM 3.8 mmol/L (3.5-5.1); SODIUM SERUM 140 mmol/L (136-145); UREA NITROGEN, BLOOD 76 mg/dL (7-18)
--- NOTE | 2020-04-04 06:25 | NUR ---
MS RN NOTES PT REFUSED TO BE CLEANED ON SHIFT. OFFERED MULTIPLE TIMES AND PT CONTINUED TO REFUSE. WILL CONTINUE TO MONITOR.
--- NOTE | 2020-04-04 06:54 | NUR ---
MS RN NOTES NO ACUTE CHANGES THROUGHOUT SHIFT. WILL ENDORSE TO ONCOMING NURSE FOR FRANCIS.
--- NOTE | 2020-04-04 07:20 | NUR ---
RECEIVED PT IN BED AWAKE AND ABLE TO MAKE NEEDS KNOWN. PT A/OX 3. RESPIRATIONS EVEN AND UNLABORED WITH NO S/S OF ACUTE DISTRESS OR SOB NOTED ON 1L/MIN NC. NO COMPLAINTS OF PAIN AT THIS TIME. NPO ORDERED. [place] PICC FLUSHED AND DRESSING INTACT W NO SIGNS OF INFILTRATION. BED IN LOWEST LOCKED POSITION WITH SIDE RAILS UP X2. CALL LIGHT WITHIN REACH. WILL CONTINUE TO MONITOR AND REPORT NEEDED.
[2020-04-04] MEDS: PANTOPRAZOLE 40 MG TABLET.DR PO SCH (07:30)
[2020-04-04 08:00] VITALS: BP 153/52
[2020-04-04] MEDS: AMLODIPINE BESYLATE 5 MG TABLET PO SCH (09:00)
[2020-04-04] MEDS: hydrALAZINE HCL 50 MG TABLET PO SCH ×3 (09:00→17:33)
[2020-04-04] MEDS: METOLAZONE 2.5 MG TABLET PO SCH (09:00)
--- NOTE | 2020-04-04 09:00 | NUR ---
PO MEDS NON ADMIN PER NPO ORDERS.
[2020-04-04] MEDS: CEFTRIAXONE 1 G in IV D5W 50 ML IV SCH (09:46)
[2020-04-04] MEDS: methylPREDNISolone SOD SUCC 40 MG/ML VIAL IV SCH (09:46)
[2020-04-04] MEDS: Z GUARD REMEDY 2 OZ OINT TP SCH (09:46)
[2020-04-04] MEDS: VITAMINS A AND D 56.7 GM TUBE TP SCH ×2 (09:47→17:33)
[2020-04-04 12:00] VITALS: BP 126/60
--- NOTE | 2020-04-04 12:29 | NUR ---
per tessa procedure reschedule for am,dr. duarte made aware,will feed pt. and keep npo by 10 pm, notified.
[2020-04-04] MEDS: DOXYCYCLINE HYCLATE (100 MG) 100 MG TABLET PO SCH ×2 (12:50)
--- NOTE | 2020-04-04 19:15 | NUR ---
RECEIVED PT IN BED AWAKE AND ABLE TO MAKE NEEDS KNOWN. PT A/OX 3. RESPIRATIONS EVEN AND UNLABORED WITH NO S/S OF ACUTE DISTRESS OR SOB NOTED ON 2L/MIN NC. NO COMPLAINTS OF PAIN AT THIS TIME. RENAL DIET BUT WILL BE NPO AT 2200. PM RN AWARE. [place] PICC FLUSHED AND DRESSING INTACT W NO SIGNS OF INFILTRATION. BED IN LOWEST LOCKED POSITION WITH SIDE RAILS UP X2. CALL LIGHT WITHIN REACH. CONTINUED TO MONITOR AND REPORT NEEDED DURING SHIFT. NO CHANGES IN STATUS AND NO DISTRESS. TURNED Q2H AND ELEVATED LEGS AND ARMS. ENDORSED TO PM RN.
--- NOTE | 2020-04-04 19:30 | NUR ---
RN NOTE RECEIVED PATIENT IN BED, A0 X 4, RESPONDS APPROPRIATELY, ABLE TO EXPRESS NEEDS. PATIENT IN NO S/SX OF ACUTE DISTRESS AT THIS TIME. PATIENT'S BREATHING IS EVEN AND UNLABORED. PATIENT IS ON 1L OF OXYGEN VIA NC, SATURATING AT 100%. NOTED [place] PICC LINE, ALL PORTS PATENT AND FLUSHING WELL, NO S/S OF INFECTION NOTED. PATIENT URINATES USING URINAL AT BEDSIDE. REMINDED PATIENT REGARDING NPO STATUS POST 2200 DUE TO UPCOMING PERMACATH PLACEMENT TOMORROW 04/05. SAFETY MEASURES IMPLEMENTED PER PROTOCOL. PATIENT BED ALARM IS ON. HEAD OF BED ELEVATED. BED IS LOCKED, IN LOWEST POSITION AND SIDE RAILS UP. CALL LIGHT WITHIN REACH OF THE PATIENT. WILL CONTINUE TO MONITOR AND REASSESS FOR ANY CHANGES.
[2020-04-04 20:00] VITALS: BP 145/51
[2020-04-05] MEDS: ENOXAPARIN SODIUM 30 MG/0.3 ML DISP.SYRIN SQ SCH (01:00)
--- NOTE | 2020-04-05 01:00 | NUR ---
RN NOTE ENOXAPARIN 30 MG NON ADMINISTERED DUE TO SCHEDULED PERMA CATH PLACEMENT AT 0700.
[2020-04-05] MEDS: DOXYCYCLINE HYCLATE (100 MG) 100 MG TABLET PO SCH ×2 (01:29→13:49)
[2020-04-05] MEDS: NITROGLYCERIN 30 GM TUBE TP SCH ×2 (01:40→13:49)
[2020-04-05 04:00] VITALS: BP 152/60
[2020-04-05] MEDS ORDERED: HEPARIN SODIUM, PORCINE 1,000 UNIT/ML VIAL ONE (06:21)
[2020-04-05] MEDS ORDERED: ANESTHESIA TRAY IN PYXIS 1 EA TRAY MC ONE (06:22)
[2020-04-05] MEDS ORDERED: LIDOCAINE 1% INJ 50 ML MDV IJ ONE (06:23)
[2020-04-05] MEDS ORDERED: FENTANYL PF 100MCG/2ML AMPUL ONE (06:59)
[2020-04-05] MEDS ORDERED: LABETALOL HCL IV 100MG VIAL ONE (07:53)
--- NOTE | 2020-04-05 08:01 | NUR ---
RN MS NOTE: PT CURRENTLY IN PROCEDURE FOR PERMACATH PLACEMENT. WILL PERFORM ASSESSMENT UPON ARRIVAL TO ROOM.
[2020-04-05] MEDS: PANTOPRAZOLE 40 MG TABLET.DR PO SCH (08:40)
[2020-04-05] MEDS: METOLAZONE 2.5 MG TABLET PO SCH (08:41)
[2020-04-05] MEDS: methylPREDNISolone SOD SUCC 40 MG/ML VIAL IV SCH (08:41)
[2020-04-05] MEDS: AMLODIPINE BESYLATE 5 MG TABLET PO SCH (08:42)
[2020-04-05] MEDS: CEFTRIAXONE 1 G in IV D5W 50 ML IV SCH (08:43)
[2020-04-05] MEDS: hydrALAZINE HCL 50 MG TABLET PO SCH ×3 (08:43→16:53)
[2020-04-05] MEDS: Z GUARD REMEDY 2 OZ OINT TP SCH (08:44)
[2020-04-05] MEDS: VITAMINS A AND D 56.7 GM TUBE TP SCH ×2 (09:00→16:53)
--- NOTE | 2020-04-05 10:00 | NUR ---
RN MS NOTE: PT RECEIVED FROM PROCEDURE, EYES OPEN A/OX4. PT ON 1L O2 SAT 99%. NO RESPIRATORY DISTRESS OR SOB. PT HAS [place] PICC IN PLACE, CURRENTLY NS TKO. NO SIGNS OF INFECTION OR INFILTRATION. RIGHT UPPER CHEST PERMACTH IN PLACE. DRESSING DRY AND INTACT. NO SIGNS OF INFECTION. BED IN LOCKED LOWEST POSITION, CALL LIGHT WITHIN REACH. ALL SAFETY MEASURES IN PLACE. WILL CONTINUE TO MONITOR CLOSELY
--- NOTE | 2020-04-05 10:37 | NUR ---
RN MS NOTE: MELLOWING MACHINE OPERATOR IN ROOM. CLONIDINE PATH WITHHELD FOR AFTER HD SESSION. OTHER BP MEDS GIVEN THIS AM PRIOR TO MELLOWING MACHINE OPERATOR FOR BP 170/55. ENDORSED TO MELLOWING MACHINE OPERATOR.
[2020-04-05 12:00] VITALS: BP 142/50
--- NOTE | 2020-04-05 13:00 | NUR ---
RN MS NOTE: VETERINARIAN SMALL ANIMAL REPORTS NO OUTPUT
[2020-04-05] MEDS: CLONIDINE HCL 0.2MG/24H PTWK 1 EA PATCH TD SCH (13:32)
[2020-04-05] MEDS ORDERED: DEXTROSE 50%-WATER 50 ML DISP.SYRIN IV PRN (16:30)
[2020-04-05] MEDS: ACETAMINOPHEN 325 MG TABLET PO PRN (16:52)
[2020-04-05] MEDS: BLOOD SUGAR DIAGNOSTIC 1 EACH STRIP VI SCH ×2 (16:54→22:19)
--- NOTE | 2020-04-05 16:58 | NUR ---
RN MS NOTE: PT REPORTS PAIN 5/10 GENERALIZED PAIN WHERE PERMACATH INSERTED SURGICALLY THIS AM. TYLENOL ORDERED BY MD BATISTA. MODERATE INSULIN SLIDING SCALE ORDERED PER MD BATISTA.
[2020-04-05] MEDS: INSULIN REGULAR, HUMAN 100 UNIT/ML 3 ML VIAL SQ PRN ×2 (17:22→22:29)
--- NOTE | 2020-04-05 18:33 | NUR ---
RN MS NOTE: PT CONDITION UNCHANGED. PT ON 1 L NC, O2 SATURATION 97%. NO SIGNS OF RESPIRATORY DISTRESS OR SOB. PT [place] PICC RUNNING NS TKO. NO SIGNS OF INFECTION OR INFILTRATION. RU CHEST WALL PERMACATH INSERTED THIS AM SHOWS NO SIGNS OF INFECTION. BED IN LOCKED LOWEST POSITION. CALL LIGHT WITHIN REACH. ALL SAFETY MEASURES IN PLACE. ALL WOUND TX COMPLETE. REPORT GIVEN TO ONCOMING RN FOR FRANCIS.
--- NOTE | 2020-04-05 19:55 | NUR ---
RN NOTES RECEIVED PATIENT ALERT ORIENTED X4. PT ON 1L O2 SAT 99%. NO RESPIRATORY DISTRESS OR SOB. PT HAS [place] PICC IN PLACE, CURRENTLY NS TKO. NO SIGNS OF INFECTION OR INFILTRATION. RIGHT UPPER CHEST PERMACTH IN PLACE. DRESSING DRY AND INTACT. NO SIGNS OF INFECTION. SAFETY MEASURES IN PLACE, BED IN LOCKED LOWEST POSITION, CALL LIGHT WITHIN REACH. ALL SAFETY MEASURES IN PLACE. ALL NEEDS ANTICIPATED. WILL CONTINUE TO MONITOR ACCORDINGLY.
[2020-04-05 20:24] VITALS: BP 122/46
[2020-04-06] MEDS: ENOXAPARIN SODIUM 30 MG/0.3 ML DISP.SYRIN SQ SCH (01:00)
[2020-04-06] MEDS: DOXYCYCLINE HYCLATE (100 MG) 100 MG TABLET PO SCH ×2 (01:23→13:28)
[2020-04-06] MEDS: NITROGLYCERIN 30 GM TUBE TP SCH ×2 (01:24→13:00)
[2020-04-06 04:08] VITALS: BP 132/46
[2020-04-06 04:52] VITALS: BP 140/47
[2020-04-06 06:04] LABS: HEMATOCRIT 28 % (39-51); LYMPHOCYTES # (AUTO) 0.7 /CMM (0.8-4.8); LYMPHOCYTES % (AUTO) 6.9 % (20.0-44.0); MEAN CORPUSCULAR HGB CONC 32 g/dl (31.0-36.0); MEAN CORPUSCULAR VOLUME 91 fL (80-96); MONOCYTES # (AUTO) 0.9 /CMM (0.1-1.30); NEUTROPHILS # (AUTO) 8.1 /CMM (1.8-8.9); NEUTROPHILS % (AUTO) 84.1 % (43.0-81.0); PLATELET COUNT (AUTO) 89 /CMM (150-450); RED BLOOD CELL COUNT(AUTO) 3.03 MIL/uL (4.5-6.0); WHITE BLOOD COUNT (AUTO) 9.7 K/uL (4.3-11.0)
[2020-04-06 06:15] LABS: CALCIUM, SERUM 8.8 mg/dL (8.5-10.1); CARBON DIOXIDE 28 mmol/L (21-32); CHLORIDE 107 mmol/L (98-107); CREATININE 1.8 mg/dL (0.6-1.3); GLUCOSE 116 mg/dL (74-106); POTASSIUM 4.3 mmol/L (3.5-5.1); SODIUM SERUM 141 mmol/L (136-145); UREA NITROGEN, BLOOD 63 mg/dL (7-18)
--- NOTE | 2020-04-06 06:21 | NUR ---
RN NOTES ALL NEEDS ATTENDED AND MET. PT ON 3 L NC, O2 SATURATION 999%. NO SIGNS OF ACUTE RESPIRATORY DISTRESS OR SOB. NO SIGNS OF INFECTION OR INFILTRATION. RU CHEST WALL PERMACATH INSERTED YESTERDAY AM SHOWS NO SIGNS OF INFECTION. BED IN LOCKED LOWEST POSITION. CALL LIGHT WITHIN REACH. SAFETY MEASURES IN PLACE. ALL WOUND TX COMPLETE. ALL NEEDS ANTICIPATED, WILL ENDORSE TO AM NURSE FOR CONTINUITY OF CARE.
--- NOTE | 2020-04-06 07:00 | NUR ---
RN OPENING NOTES RECEIVED PT AWAKE, A/O X4. ON 3L O2 SAT 99%. NO SOB OR ANY RESPIRATORY DISTRESS NOTED. R UA PICC LINE, INTACT AND PATENT. NS TKO. RIGHT UPPER CHEST PERMACATH IN PLACE. DRESSING DRY AND INTACT. NO SIGNS OF INFECTION. SAFETY MEASURES IN PLACE, BED LOCKED AND AT LOWEST POSITION. CALL LIGHT WITHIN REACH. WILL CONTINUE TO MONITOR ACCORDINGLY.
[2020-04-06] MEDS: BLOOD SUGAR DIAGNOSTIC 1 EACH STRIP VI SCH ×4 (07:46→21:59)
[2020-04-06] MEDS: INSULIN REGULAR, HUMAN 100 UNIT/ML 3 ML VIAL SQ PRN ×4 (07:56→22:01)
[2020-04-06] MEDS: PANTOPRAZOLE 40 MG TABLET.DR PO SCH (07:56)
[2020-04-06] MEDS: CEFTRIAXONE 1 G in IV D5W 50 ML IV SCH (08:36)
[2020-04-06] MEDS: methylPREDNISolone SOD SUCC 40 MG/ML VIAL IV SCH (08:36)
[2020-04-06] MEDS: AMLODIPINE BESYLATE 5 MG TABLET PO SCH (08:37)
[2020-04-06] MEDS: hydrALAZINE HCL 50 MG TABLET PO SCH ×3 (08:37→17:00)
[2020-04-06] MEDS: METOLAZONE 2.5 MG TABLET PO SCH (08:38)
[2020-04-06] MEDS: Z GUARD REMEDY 2 OZ OINT TP SCH (08:39)
[2020-04-06] MEDS: VITAMINS A AND D 56.7 GM TUBE TP SCH ×2 (08:39→17:00)
[2020-04-06 09:27] LABS: LYMPHOCYTES % (MANUAL) 7 % (16-48); MONOCYTES % (MANUAL) 8 % (0-11.0); NEUTROPHILS % (MANUAL) 85 (42-76)
[2020-04-06 12:00] VITALS: BP 110/50
--- NOTE | 2020-04-06 13:10 | NUR ---
RN NOTES PT IS FOR DIALYSIS. HOLD NITROGLYCERIN AND HYDRALAZINE PER HD NURSE. BP IS 110/50. WILL CONTINUE TO MONITOR
[2020-04-06] MEDS: ACETAMINOPHEN 325 MG TABLET PO PRN (14:06)
--- NOTE | 2020-04-06 16:30 | NUR ---
RN NOTES HD DONE. 500ML OUTPUT. PT STABLE. BP 132/55.
--- NOTE | 2020-04-06 19:30 | NUR ---
RN NOTE RECEIVED PATIENT IN BED, A0 X 4, RESPONDS APPROPRIATELY, ABLE TO EXPRESS NEEDS. PATIENT IN NO S/SX OF ACUTE DISTRESS AT THIS TIME. PATIENT'S BREATHING IS EVEN AND UNLABORED. PATIENT IS ON 3L OF OXYGEN VIA NC, SATURATING AT 100%. NOTED [place] PICC LINE, ALL PORTS PATENT AND FLUSHING WELL, AND PERMACATH AT RIGHT CHEST WALL, NO S/S OF INFECTION NOTED. PATIENT URINATES USING URINAL AT BEDSIDE. BLEEDING PRECAUTIONS OBSERVED. SAFETY MEASURES IMPLEMENTED PER PROTOCOL. PATIENT BED ALARM IS ON. HEAD OF BED ELEVATED. BED IS LOCKED, IN LOWEST POSITION AND SIDE RAILS UP. CALL LIGHT WITHIN REACH OF THE PATIENT. WILL CONTINUE TO MONITOR AND REASSESS FOR ANY CHANGES.
--- NOTE | 2020-04-06 19:42 | NUR ---
RN CLOSING NOTES PT AWAKE, A/O X4. ON 3L O2 SAT 99%. NO SOB OR ANY RESPIRATORY DISTRESS NOTED. R UA PICC LINE, INTACT AND PATENT. NS TKO. RIGHT UPPER CHEST PERMACATH IN PLACE. DRESSING DRY AND INTACT. NO SIGNS OF INFECTION. SAFETY MEASURES IN PLACE, BED LOCKED AND AT LOWEST POSITION. CALL LIGHT WITHIN REACH. WILL ENDORSE TO NIGHT NURSE FOR FRANCIS.
[2020-04-06 20:00] VITALS: BP 134/44
[2020-04-07] MEDS: ENOXAPARIN SODIUM 30 MG/0.3 ML DISP.SYRIN SQ SCH (00:59)
[2020-04-07] MEDS: NITROGLYCERIN 30 GM TUBE TP SCH ×2 (01:00→12:36)
--- NOTE | 2020-04-07 01:00 | NUR ---
RN NOTE BLEEDING NOTED AT PERMA CATH SITE. DIRECT PRESSURE PLACED OVER SITE, DRESSING CHANGED ASEPTICALLY, ENOXAPARIN NON ADMINISTERED. WILL CONTINUE TO MONITOR. GRAB SETTER MADE AWARE.
[2020-04-07] MEDS: DOXYCYCLINE HYCLATE (100 MG) 100 MG TABLET PO SCH ×2 (01:01→12:31)
[2020-04-07 04:00] VITALS: BP 149/47
--- NOTE | 2020-04-07 07:15 | NUR ---
RN OPENING NOTES RECEIVED PT AWAKE, A/O X4. ON 3L O2 SAT 99%. NO SOB OR ANY RESPIRATORY DISTRESS NOTED. R UA PICC LINE, INTACT AND PATENT. NS TKO. RIGHT UPPER CHEST PERMACATH IN PLACE. DRESSING DRY AND INTACT. NO SIGNS OF INFECTION. NO PAIN REPORTED AT THIS TIME. SAFETY MEASURES IN PLACE. BED LOCKED AND AT LOWEST POSITION. CALL LIGHT WITHIN REACH. WILL CONTINUE TO MONITOR.
[2020-04-07] MEDS: PANTOPRAZOLE 40 MG TABLET.DR PO SCH (07:30)
[2020-04-07] MEDS: BLOOD SUGAR DIAGNOSTIC 1 EACH STRIP VI SCH ×4 (08:25→22:18)
[2020-04-07] MEDS: CEFTRIAXONE 1 G in IV D5W 50 ML IV SCH (09:00)
[2020-04-07] MEDS: methylPREDNISolone SOD SUCC 40 MG/ML VIAL IV SCH (09:00)
[2020-04-07] MEDS: hydrALAZINE HCL 50 MG TABLET PO SCH ×3 (09:00→17:53)
[2020-04-07] MEDS: AMLODIPINE BESYLATE 5 MG TABLET PO SCH (09:00)
[2020-04-07] MEDS: METOLAZONE 2.5 MG TABLET PO SCH (09:00)
--- NOTE | 2020-04-07 09:00 | NUR ---
RN NOTES PT IS FOR DIALYSIS. PER HD NURSE HOLD AM MEDS.
[2020-04-07 09:11] LABS: BASOPHILS % (AUTO) 0.8 % (0.0-2.0); EOSINOPHILS % (AUTO) 0.9 % (0.0-6.0); HEMATOCRIT 26 % (39-51); HEMOGLOBIN 8.3 g/dL (13.5-17.5); LYMPHOCYTES # (AUTO) 0.5 /CMM (0.8-4.8); LYMPHOCYTES % (AUTO) 31.2 % (20.0-44.0); MEAN CORPUSCULAR HGB CONC 32 g/dl (31.0-36.0); MEAN CORPUSCULAR VOLUME 92 fL (80-96); MONOCYTES % (AUTO) 2.4 % (2.0-12.0); NEUTROPHILS % (AUTO) 64.7 % (43.0-81.0); PLATELET COUNT (AUTO) 60 /CMM (150-450); RED BLOOD CELL COUNT(AUTO) 2.79 MIL/uL (4.5-6.0)
[2020-04-07] MEDS: Z GUARD REMEDY 2 OZ OINT TP SCH (09:17)
[2020-04-07] MEDS: VITAMINS A AND D 56.7 GM TUBE TP SCH ×2 (09:17→17:37)
[2020-04-07 09:18] LABS: CALCIUM, SERUM 8.1 mg/dL (8.5-10.1); CREATININE 1.1 mg/dL (0.6-1.3)
[2020-04-07 09:19] LABS: WHITE BLOOD COUNT (AUTO) 1.5 K/uL (4.3-11.0)
[2020-04-07 11:45] LABS: LYMPHOCYTES % (MANUAL) 31 % (16-48); MONOCYTES % (MANUAL) 6 % (0-11.0); NEUTROPHILS % (MANUAL) 63 (42-76)
[2020-04-07 12:00] VITALS: BP 125/49
--- NOTE | 2020-04-07 12:30 | NUR ---
RN NOTES HD DONE. BP OF 137/56. PT STABLE. WILL CONTINUE TO MONITOR
[2020-04-07] MEDS: INSULIN REGULAR, HUMAN 100 UNIT/ML 3 ML VIAL SQ PRN ×2 (12:39→17:59)
--- NOTE | 2020-04-07 19:07 | NUR ---
RN CLOSING NOTES PT RESTING IN BED, A/O X4. ON 3L O2 SAT 99%. NO SOB OR ANY RESPIRATORY DISTRESS NOTED. R UA PICC LINE, INTACT AND PATENT. NS TKO. RIGHT UPPER CHEST PERMACATH IN PLACE. DRESSING DRY AND INTACT. NO SIGNS OF INFECTION. NO PAIN REPORTED AT THIS TIME. HD OUTPUT 1L. SAFETY MEASURES IN PLACE. BED LOCKED AND AT LOWEST POSITION. CALL LIGHT WITHIN REACH. WILL ENDORSE TO NIGHT NURSE FOR FRANCIS.
--- NOTE | 2020-04-07 19:30 | NUR ---
RN NOTE RECEIVED PATIENT IN BED, A0 X 4, IN NO S/SX OF ACUTE DISTRESS AT THIS TIME. PATIENT'S BREATHING IS EVEN AND UNLABORED. PATIENT IS ON 3L OF OXYGEN VIA NC, SATURATING AT 98%. NOTED [place] PICC LINE, ALL PORTS PATENT AND FLUSHING WELL, AND PERMACATH AT RIGHT CHEST WALL, NO S/S OF INFECTION NOTED. PATIENT URINATES USING URINAL AT BEDSIDE. BLEEDING PRECAUTIONS OBSERVED. SAFETY MEASURES IMPLEMENTED PER PROTOCOL. PATIENT BED ALARM IS ON. HEAD OF BED ELEVATED. BED IS LOCKED, IN LOWEST POSITION AND SIDE RAILS UP. CALL LIGHT WITHIN REACH OF THE PATIENT. WILL CONTINUE TO MONITOR AND REASSESS FOR ANY CHANGES.
[2020-04-07 20:00] VITALS: BP 137/49
[2020-04-08] MEDS: NITROGLYCERIN 30 GM TUBE TP SCH ×2 (00:13→15:10)
[2020-04-08] MEDS: DOXYCYCLINE HYCLATE (100 MG) 100 MG TABLET PO SCH ×2 (00:13→15:08)
[2020-04-08] MEDS: ENOXAPARIN SODIUM 30 MG/0.3 ML DISP.SYRIN SQ SCH (00:14)
--- NOTE | 2020-04-08 01:00 | NUR ---
RN NOTE ENOXAPARIN 30 MG NON ADMINISTERED DUE TO LOW PLATELET AND BLEEDING AT [facility] SITE. STRUCTURAL TEST ENGINEER MADE AWARE.
[2020-04-08 04:00] VITALS: BP 128/45
[2020-04-08 06:40] LABS: BASOPHILS % (AUTO) 0.1 % (0.0-2.0); EOSINOPHILS % (AUTO) 0.5 % (0.0-6.0); HEMATOCRIT 27 % (39-51); HEMOGLOBIN 8.8 g/dL (13.5-17.5); LYMPHOCYTES # (AUTO) 0.9 /CMM (0.8-4.8); LYMPHOCYTES % (AUTO) 13.1 % (20.0-44.0); MEAN CORPUSCULAR HGB CONC 32 g/dl (31.0-36.0); MEAN CORPUSCULAR VOLUME 92 fL (80-96); MONOCYTES # (AUTO) 0.6 /CMM (0.1-1.30); NEUTROPHILS # (AUTO) 5.7 /CMM (1.8-8.9); NEUTROPHILS % (AUTO) 78.3 % (43.0-81.0); PLATELET COUNT (AUTO) 82 /CMM (150-450); RED BLOOD CELL COUNT(AUTO) 2.93 MIL/uL (4.5-6.0); WHITE BLOOD COUNT (AUTO) 7.2 K/uL (4.3-11.0)
--- NOTE | 2020-04-08 07:24 | NUR ---
RN NOTE PATIENT IN BED, NO SIGN OF ACUTE DISTRESS NOTED, ON 3L OF OXYGEN, SATURATING AT 100%. [place] PICC LINE PATENT AND FLUSHING WITH NS AT TKO, PERMACATH AT RIGHT CHEST WALL WITH DRESSING INTACT. SAFETY MEASURES IMPLEMENTED PER PROTOCOL. BLEEDING PRECAUTIONS OBSERVED. ENDORSED TO BALBIR MORRISSEY FOR CONTINUATION OF CARE.
--- NOTE | 2020-04-08 07:30 | NUR ---
RN Opening Note Received patient in bed, AO x 4, able to responds all stimuli. Respiratory even and unlabored with oxygen at 1-3LPM, no distress or SOB observed. Skin is warm to touch keep clean/dry intact piccline site on right upper arm. Kept locked bed with elevated HOB for ensure airway and aspiration precaution and lowest position for safety. Call light within reach, will continue to monitor.
[2020-04-08] MEDS: BLOOD SUGAR DIAGNOSTIC 1 EACH STRIP VI SCH ×4 (08:48→22:05)
[2020-04-08] MEDS: PANTOPRAZOLE 40 MG TABLET.DR PO SCH ×2 (08:48→08:59)
[2020-04-08] MEDS: methylPREDNISolone SOD SUCC 40 MG/ML VIAL IV SCH (08:49)
[2020-04-08] MEDS: hydrALAZINE HCL 50 MG TABLET PO SCH ×3 (08:49→16:57)
[2020-04-08] MEDS: CEFTRIAXONE 1 G in IV D5W 50 ML IV SCH (08:50)
[2020-04-08] MEDS: AMLODIPINE BESYLATE 5 MG TABLET PO SCH (08:50)
[2020-04-08] MEDS: METOLAZONE 2.5 MG TABLET PO SCH (08:50)
[2020-04-08] MEDS: VITAMINS A AND D 56.7 GM TUBE TP SCH ×2 (08:52→16:58)
[2020-04-08] MEDS: Z GUARD REMEDY 2 OZ OINT TP SCH (08:54)
[2020-04-08] MEDS: INSULIN REGULAR, HUMAN 100 UNIT/ML 3 ML VIAL SQ PRN ×3 (15:06→22:10)
--- NOTE | 2020-04-08 18:52 | NUR ---
RN Closing note Patient in the bed resting, does no appears pain or discomfort. Skin is warm to touch, keep intact piccline site. Respiratory even and unlabored with oxygen at 2LPM O2sat 96%. Kept locked bed with elevated HOB for ensure airway and aspiration precaution and lowest position for safety. Call light within reach, will endorse manufacturing shift supervisor.
--- NOTE | 2020-04-08 19:30 | NUR ---
RN OPENING NOTE RECEIVED PATIENT IN BED RESTING ALERT ORIENTED X4 VERBALLY RESPONSIVE NO SOB NOT ACUTE DISTRESS NOTED,ON 2L OXYGEN VIA NASAL CANNULA,O2:96% IV SITE IS ON RIGHT UPPER ARM PICC LINE INTACT PATENT AND RIGHT UPPER CHEST PERM-CATH FOR DIALYSIS DRESSING INTACT IMPLEMENT SAFETY MEASURE,BED IN LOW POSITION AND LOCKED KEEP CALL LIGHT WITHIN REACH,CONTINUE TO MONITOR.
[2020-04-08 20:00] VITALS: BP 142/47
[2020-04-09] MEDS: ACETAMINOPHEN 325 MG TABLET PO PRN (00:12)
[2020-04-09] MEDS: DOXYCYCLINE HYCLATE (100 MG) 100 MG TABLET PO SCH ×2 (00:51→13:27)
[2020-04-09] MEDS: NITROGLYCERIN 30 GM TUBE TP SCH ×2 (00:55→13:27)
[2020-04-09] MEDS: ENOXAPARIN SODIUM 30 MG/0.3 ML DISP.SYRIN SQ SCH (01:56)
[2020-04-09 04:00] VITALS: BP 131/81
[2020-04-09 06:05] LABS: BASOPHILS % (AUTO) 0.2 % (0.0-2.0); HEMATOCRIT 27 % (39-51); HEMOGLOBIN 8.6 g/dL (13.5-17.5); LYMPHOCYTES # (AUTO) 0.8 /CMM (0.8-4.8); LYMPHOCYTES % (AUTO) 10.4 % (20.0-44.0); MEAN CORPUSCULAR HGB CONC 32 g/dl (31.0-36.0); MEAN CORPUSCULAR VOLUME 92 fL (80-96); MONOCYTES # (AUTO) 0.7 /CMM (0.1-1.30); NEUTROPHILS # (AUTO) 5.7 /CMM (1.8-8.9); NEUTROPHILS % (AUTO) 79.4 % (43.0-81.0); PLATELET COUNT (AUTO) 91 /CMM (150-450); RED BLOOD CELL COUNT(AUTO) 2.87 MIL/uL (4.5-6.0); WHITE BLOOD COUNT (AUTO) 7.2 K/uL (4.3-11.0)
[2020-04-09 06:07] LABS: CALCIUM, SERUM 8.9 mg/dL (8.5-10.1); CARBON DIOXIDE 30 mmol/L (21-32); CHLORIDE 106 mmol/L (98-107); CREATININE 1.9 mg/dL (0.6-1.3); GLUCOSE 130 mg/dL (74-106); POTASSIUM 4.2 mmol/L (3.5-5.1); SODIUM SERUM 136 mmol/L (136-145); UREA NITROGEN, BLOOD 57 mg/dL (7-18)
--- NOTE | 2020-04-09 06:50 | NUR ---
RN CLOSING NOTE PATIENT REMAINS ALERT ORIENTED X4 VERBALLY RESPONSIVE NO SOB NOT ACUTE DISTRESS NOTED,ON OXYGEN VIA NASAL CANNULA,O2:98% IV SITE IS ON RIGHT UPPER ARM PICC LINE INTACT PATENT FLUSHED AND RIGHT UPPER CHEST PERM-CATH FOR DIALYSIS,ALL DUE MEDS GIVEN MD ORDERED KEPT CLEAN AND DRY ALL THE TIME,KEPT CALL LIGHT WITHIN REACH,ALL NEEDS MET,ENDORSE NEXT COMING SHIFT FOR CONTINUATION OF CARE.
--- NOTE | 2020-04-09 07:15 | NUR ---
RN OPENING NOTES RECEIVED PT AWAKE, A/O X4. ON 3L O2 SAT 99%. NO SOB OR ANY RESPIRATORY DISTRESS NOTED. R UA PICC LINE, INTACT AND PATENT. RIGHT UPPER CHEST PERMACATH IN PLACE. DRESSING DRY AND INTACT. NO SIGNS OF INFECTION. NO PAIN REPORTED AT THIS TIME. SAFETY MEASURES IN PLACE. BED LOCKED AND AT LOWEST POSITION. CALL LIGHT WITHIN REACH. WILL CONTINUE TO MONITOR.
[2020-04-09] MEDS: BLOOD SUGAR DIAGNOSTIC 1 EACH STRIP VI SCH ×4 (07:49→21:25)
[2020-04-09] MEDS: CEFTRIAXONE 1 G in IV D5W 50 ML IV SCH (09:17)
[2020-04-09] MEDS: AMLODIPINE BESYLATE 5 MG TABLET PO SCH (09:18)
[2020-04-09] MEDS: METOLAZONE 2.5 MG TABLET PO SCH (09:18)
[2020-04-09] MEDS: hydrALAZINE HCL 50 MG TABLET PO SCH ×3 (09:18→17:38)
[2020-04-09] MEDS: VITAMINS A AND D 56.7 GM TUBE TP SCH ×2 (09:19→17:38)
[2020-04-09] MEDS: methylPREDNISolone SOD SUCC 40 MG/ML VIAL IV SCH (09:19)
[2020-04-09] MEDS: Z GUARD REMEDY 2 OZ OINT TP SCH (09:19)
--- NOTE | 2020-04-09 09:30 | NUR ---
RN NOTES PT STARTS HD, BP 143/57. PT STABLE CONDITION.
[2020-04-09 10:59] LABS: LYMPHOCYTES % (MANUAL) 12 % (16-48); MONOCYTES % (MANUAL) 3 % (0-11.0); NEUTROPHILS % (MANUAL) 85 (42-76)
--- NOTE | 2020-04-09 11:30 | NUR ---
RN NOTES HD DONE. BP 130/60. PT ON STABLE CONDITION. WILL CONTINUE TO MONITOR
[2020-04-09] MEDS: PROSOURCE / PROSTAT (PYXIS) 30 ML UDC GT SCH ×2 (11:56→17:00)
[2020-04-09 12:00] VITALS: BP 130/60
[2020-04-09] MEDS: INSULIN REGULAR, HUMAN 100 UNIT/ML 3 ML VIAL SQ PRN ×2 (13:30→17:42)
--- NOTE | 2020-04-09 18:52 | NUR ---
RN CLOSING NOTES PT RESTING IN BED, A/O X4. ON 3L O2 SAT 99%. NO SOB OR ANY RESPIRATORY DISTRESS NOTED. R UA PICC LINE, INTACT AND PATENT. RIGHT UPPER CHEST PERMACATH IN PLACE. DRESSING DRY AND INTACT. NO SIGNS OF INFECTION. NO PAIN REPORTED AT THIS TIME. 2L OUTPUT ON HD. SAFETY MEASURES IN PLACE. BED LOCKED AND AT LOWEST POSITION. CALL LIGHT WITHIN REACH. WILL ENDORSE TO NIGHT NURSE FOR FRANCIS.
--- NOTE | 2020-04-09 19:30 | NUR ---
RN OPENING NOTE RECEIVED PATIENT IN BED RESTING ALERT ORIENTED X4 VERBALLY RESPONSIVE NO SOB NOT ACUTE DISTRESS NOTED,ON 3L OXYGEN VIA NASAL CANNULA,O2:96% IV SITE IS ON RIGHT UPPER ARM PICC LINE PATENT INTACT AND PERM-CATH ON RIGHT UPPER CHEST FOR DIALYSIS,DRESSING IS INTACT,IMPLEMENT SAFETY MEASURE,BED IS ON LOW POSITION AND LOCKED,BED ALARM IS ON,CALL LIGHT WITHIN REACH,CONTINUE TO MONITOR.
[2020-04-09 20:00] VITALS: BP 142/50
[2020-04-09] MEDS: *INSULIN REGULAR(HUMULIN R)HUM 100 UNIT/ML VIAL SQ PRN (21:35)
[2020-04-10] MEDS: DOXYCYCLINE HYCLATE (100 MG) 100 MG TABLET PO SCH ×2 (00:06→12:22)
[2020-04-10] MEDS: ENOXAPARIN SODIUM 30 MG/0.3 ML DISP.SYRIN SQ SCH (00:11)
[2020-04-10] MEDS: NITROGLYCERIN 30 GM TUBE TP SCH ×2 (00:13→12:13)
[2020-04-10 04:00] VITALS: BP 147/56
--- NOTE | 2020-04-10 05:00 | NUR ---
RN NOTE CHANGED PICC LINE DRESSING,INTACT.
[2020-04-10 06:07] LABS: BASOPHILS % (AUTO) 0.1 % (0.0-2.0); HEMATOCRIT 24 % (39-51); HEMOGLOBIN 7.8 g/dL (13.5-17.5); LYMPHOCYTES # (AUTO) 0.9 /CMM (0.8-4.8); LYMPHOCYTES % (AUTO) 11.6 % (20.0-44.0); MEAN CORPUSCULAR HGB CONC 33 g/dl (31.0-36.0); MEAN CORPUSCULAR VOLUME 92 fL (80-96); MONOCYTES # (AUTO) 0.6 /CMM (0.1-1.30); MONOCYTES % (AUTO) 8.2 % (2.0-12.0); NEUTROPHILS # (AUTO) 5.9 /CMM (1.8-8.9); NEUTROPHILS % (AUTO) 80.1 % (43.0-81.0); PLATELET COUNT (AUTO) 95 /CMM (150-450); RED BLOOD CELL COUNT(AUTO) 2.56 MIL/uL (4.5-6.0); WHITE BLOOD COUNT (AUTO) 7.4 K/uL (4.3-11.0)
[2020-04-10 06:09] LABS: CALCIUM, SERUM 9.1 mg/dL (8.5-10.1); CARBON DIOXIDE 33 mmol/L (21-32); CHLORIDE 105 mmol/L (98-107); CREATININE 1.6 mg/dL (0.6-1.3); GLUCOSE 108 mg/dL (74-106); MAGNESIUM 1.7 mg/dL (1.8-2.4); PHOSPHORUS 3.1 mg/dL (2.5-4.9); POTASSIUM 4.1 mmol/L (3.5-5.1); SODIUM SERUM 140 mmol/L (136-145); UREA NITROGEN, BLOOD 57 mg/dL (7-18)
--- NOTE | 2020-04-10 06:57 | NUR ---
RN CLOSING NOTE PATIENT REMAINS ALERT ORIENTEDX4 VERBALLY RESPONSIVE NO SOB NOT ACUTE DISTRESS NOTED,HE IS ON 3L OXYGEN VIA NASAL CANNULA O2:96% IV SITE IS ON RIGHT UPPER ARM PICC LINE,INTACT PATENT AND RIGHT UPPER CHEST PERM-CATH FOR DIALYSIS,ALL DUE MEDS GIVEN MD ORDERED KEEP CLEAN AND DRY ALL THE TIME,IMPLEMENTED SAFETY MEASURE,KEPT CALL LIGHT WITHIN REACH,ENDORSE NEXT COMING SHIFT FOR CONTINUATION OF CARE.
[2020-04-10 06:59] LABS: BAND % (MANUAL) 1 % (0.0-5.0); LYMPHOCYTES % (MANUAL) 13 % (16-48); MONOCYTES % (MANUAL) 7 % (0-11.0); NEUTROPHILS % (MANUAL) 79 (42-76)
--- NOTE | 2020-04-10 07:30 | NUR ---
MS/RN - Assessment Patient in bed awake, A/O X 4, denies pain at this time, no complaints overnight, states breathing better, on oxygen at 3lpm via NC, SpO2 96%, no apparent distress seen. [place] PICC line is patent, intact, flushing well. Labs reviewed, hemoglobin dropped to 7.8 today, no active bleeding seen, noted with low magnesium, will notify MD. Fall and aspiration precautions maintained. Patient updated on plan of care and in agreement. Will continue with current medical management.
[2020-04-10] MEDS: BLOOD SUGAR DIAGNOSTIC 1 EACH STRIP VI SCH ×4 (07:38→21:27)
[2020-04-10] MEDS: PANTOPRAZOLE 40 MG TABLET.DR PO SCH (07:40)
[2020-04-10 08:00] VITALS: BP 138/57
[2020-04-10] MEDS: METOLAZONE 2.5 MG TABLET PO SCH (08:14)
[2020-04-10] MEDS: methylPREDNISolone SOD SUCC 40 MG/ML VIAL IV SCH (08:14)
[2020-04-10] MEDS: PROSOURCE / PROSTAT (PYXIS) 30 ML UDC GT SCH ×2 (08:15→16:42)
[2020-04-10] MEDS: CEFTRIAXONE 1 G in IV D5W 50 ML IV SCH (08:15)
[2020-04-10] MEDS: AMLODIPINE BESYLATE 5 MG TABLET PO SCH (08:15)
[2020-04-10] MEDS: hydrALAZINE HCL 50 MG TABLET PO SCH ×3 (08:16→16:42)
[2020-04-10] MEDS: Z GUARD REMEDY 2 OZ OINT TP SCH (08:17)
[2020-04-10] MEDS: VITAMINS A AND D 56.7 GM TUBE TP SCH ×2 (08:18→16:42)
--- NOTE | 2020-04-10 10:30 | NUR ---
MS/RN - Notes Spoke with Loly and updated on pt's condition.
[2020-04-10] MEDS: INSULIN REGULAR, HUMAN 100 UNIT/ML 3 ML VIAL SQ PRN ×2 (11:48→16:48)
[2020-04-10 12:00] VITALS: BP 133/48
--- NOTE | 2020-04-10 13:30 | NUR ---
MS/RN - Notes Patient is watching TV comfortably, denies pain, no c/o SOB, not in any form of distress. All needs attended. Will continue to monitor closely.
[2020-04-10 16:00] VITALS: BP 133/57
--- NOTE | 2020-04-10 18:29 | NUR ---
MS/RN - End of shift summary No significant change in condition noted, denies shortness of breath, no c/o pain, all needs attended. Will continue with current medical management.
--- NOTE | 2020-04-10 19:00 | NUR ---
RN OPENING NOTE RECEIVED PATIENT IN BED RESTING ALERT ORIENTED X4 VERBALLY RESPONSIVE NO SOB NOT ACUTE DISTRESS NOTE ON 3L OXYGEN VIA NASAL CANNULA,O2:96%,DENIES ANY PAIN,IV SITE IS ON RIGHT UPPER ARM PICC LINE INTACT AND PATENT,PERM-CATH ON RIGHT UPPER CHEST,BED IS IN LOW POSITION AND LOCKED,BED ALARM IS ON,KEEP CALL LIGHT WITHIN REACH,CONTINENT TO BLADDER, URINAL WITHIN REACH,CONTINUE TO MONITOR.
[2020-04-10] MEDS: *INSULIN REGULAR(HUMULIN R)HUM 100 UNIT/ML VIAL SQ PRN (21:32)
[2020-04-10] MEDS ORDERED: GELATIN SPONGE,ABSORBABLE 1 SPONGE SPONGE TP ONE (23:06)
[2020-04-11] MEDS: DOXYCYCLINE HYCLATE (100 MG) 100 MG TABLET PO SCH ×2 (01:11→13:16)
[2020-04-11] MEDS: NITROGLYCERIN 30 GM TUBE TP SCH ×2 (01:12→13:18)
[2020-04-11] MEDS: ENOXAPARIN SODIUM 30 MG/0.3 ML DISP.SYRIN SQ SCH (01:22)
--- NOTE | 2020-04-11 02:02 | NUR ---
RN CLOSING NOTE PATIENT REMAINS ALERT ORIENTED X4 VERBALLY RESPONSIVE ON 3L OXYGEN VIA NASAL CANNULA,O2:995%NO SOB NOT ACUTE DISTRESS NOTED ENDORSE TO ISABLE RN FOR CONTINUATION OF CARE.
[2020-04-11 06:05] LABS: BASOPHILS % (AUTO) 0.1 % (0.0-2.0); HEMATOCRIT 23 % (39-51); HEMOGLOBIN 7.5 g/dL (13.5-17.5); LYMPHOCYTES # (AUTO) 1.1 /CMM (0.8-4.8); LYMPHOCYTES % (AUTO) 11.7 % (20.0-44.0); MEAN CORPUSCULAR HGB CONC 33 g/dl (31.0-36.0); MEAN CORPUSCULAR VOLUME 93 fL (80-96); MONOCYTES # (AUTO) 0.8 /CMM (0.1-1.30); MONOCYTES % (AUTO) 9.2 % (2.0-12.0); NEUTROPHILS # (AUTO) 7.2 /CMM (1.8-8.9); PLATELET COUNT (AUTO) 104 /CMM (150-450); RED BLOOD CELL COUNT(AUTO) 2.44 MIL/uL (4.5-6.0); WHITE BLOOD COUNT (AUTO) 9.1 K/uL (4.3-11.0)
[2020-04-11 06:12] LABS: CALCIUM, SERUM 9.5 mg/dL (8.5-10.1); CARBON DIOXIDE 30 mmol/L (21-32); CHLORIDE 106 mmol/L (98-107); CREATININE 1.5 mg/dL (0.6-1.3); GLUCOSE 147 mg/dL (74-106); MAGNESIUM 1.8 mg/dL (1.8-2.4); PHOSPHORUS 3.3 mg/dL (2.5-4.9); POTASSIUM 4.2 mmol/L (3.5-5.1); SODIUM SERUM 140 mmol/L (136-145); UREA NITROGEN, BLOOD 57 mg/dL (7-18)
--- NOTE | 2020-04-11 07:30 | NUR ---
RN OPENING NOTES Received patient in bed, awake, A/O x4, on NC @ 3L of O2. tolerating well, SPO2 is 98%, denies pain or discomfort at this time. PICC line on Right upper arm noted, patent, flushed and intact, PermCath noted on R chest area, dressing is intact. Safety measures in place, HOB elevated, bed is locked in lowest position, call light in reach, will cont to monitor
[2020-04-11] MEDS: BLOOD SUGAR DIAGNOSTIC 1 EACH STRIP VI SCH ×2 (07:53→11:57)
[2020-04-11] MEDS: PANTOPRAZOLE 40 MG TABLET.DR PO SCH (07:53)
[2020-04-11 08:00] VITALS: BP 126/46
--- NOTE | 2020-04-11 08:00 | NUR ---
Brigitte MORRISSEY at bed site
[2020-04-11] MEDS: AMLODIPINE BESYLATE 5 MG TABLET PO SCH (09:00)
[2020-04-11] MEDS: Z GUARD REMEDY 2 OZ OINT TP SCH (09:00)
[2020-04-11] MEDS: PROSOURCE / PROSTAT (PYXIS) 30 ML UDC GT SCH ×2 (09:00→17:19)
[2020-04-11] MEDS: METOLAZONE 2.5 MG TABLET PO SCH (09:00)
[2020-04-11] MEDS: hydrALAZINE HCL 50 MG TABLET PO SCH ×3 (09:00→17:19)
--- NOTE | 2020-04-11 09:00 | NUR ---
Hold BP meds due dialysis
[2020-04-11] MEDS: VITAMINS A AND D 56.7 GM TUBE TP SCH ×2 (10:00→17:19)
[2020-04-11] MEDS: *INSULIN REGULAR(HUMULIN R)HUM 100 UNIT/ML VIAL SQ PRN ×2 (10:54→12:07)
[2020-04-11] MEDS: methylPREDNISolone SOD SUCC 40 MG/ML VIAL IV SCH (10:58)
[2020-04-11] MEDS: CEFTRIAXONE 1 G in IV D5W 50 ML IV SCH (10:58)
--- NOTE | 2020-04-11 11:00 | NUR ---
patient requested solid food, dietitian Zunilda saldivar, will change diet consistency
--- NOTE | 2020-04-11 11:20 | NUR ---
Central line dressing changed, tolerated well
[2020-04-11] MEDS ORDERED: AMLO-212 PO (11:41)
[2020-04-11] MEDS ORDERED: HYDR-4077 PO (11:41)
[2020-04-11] MEDS ORDERED: CLON1PAT2 TD (11:41)
[2020-04-11] MEDS ORDERED: METO2.5T7 PO (11:41)
[2020-04-11] MEDS ORDERED: NITR1OIN2 TP (11:41)
--- NOTE | 2020-04-11 12:17 | NUR ---
CALL FROM LAB, NEG COVID RESULT
[2020-04-11] MEDS ORDERED: INFLUENZA VACCINE 2020-21 0.5 ML DISP.SYRIN IM ONE (15:00)
[2020-04-11] MEDS ORDERED: PNEUMOCOCCAL 23-VAL P-SAC VAC 0.5 ML VIAL SQ ONE (15:00)
--- NOTE | 2020-04-11 15:57 | NUR ---
[facility], supervisor opening and picking time 5pm
--- NOTE | 2020-04-11 17:00 | NUR ---
am francoise transportation at bed site, pts ID and destination confirmed, unit 45 at bed site, ID band removed, discharge paperwork provided,education provided, patient is clean and ready for discharge
[2020-04-11 17:19] VITALS: BP 140/64
== END 2020-04-11 17:27 | DRG 280 ==
LOC: ER 02:32 → ICU 06:52 → TELE2 13:03 → ICU 03-29 05:49 → TELE1 03-29 15:08 → MEDSG1 04-01 08:08
PROVIDERS: ADMIT Internal Medicine; ATTEND Student in an Organized Health Care Education/Training Program
PROC: 5A1D70Z Performance of Urinary Filtration, Intermittent, Less than 6 Hours Per Day (ICD-10-PCS; principal; 2020-04-04)
PROC: 05H533Z Insertion of Infusion Device into Right Subclavian Vein, Percutaneous Approach (ICD-10-PCS; 2020-04-05)
PROC: B546ZZA Ultrasonography of Right Subclavian Vein, Guidance (ICD-10-PCS; 2020-04-05)
DX: I13.0 Hypertensive heart and chronic kidney disease with heart failure and stage 1 through stage 4 chronic kidney disease, or unspecified chronic kidney disease (principal); L89.154 Pressure ulcer of sacral region, stage 4; I21.A1 Myocardial infarction type 2; E43 Unspecified severe protein-calorie malnutrition; J96.01 Acute respiratory failure with hypoxia; J96.02 Acute respiratory failure with hypercapnia; G93.41 Metabolic encephalopathy; N17.0 Acute kidney failure with tubular necrosis; J18.9 Pneumonia, unspecified organism; I50.33 Acute on chronic diastolic (congestive) heart failure; D61.818 Other pancytopenia; E87.2 Acidosis; R64 Cachexia; E11.22 Type 2 diabetes mellitus with diabetic chronic kidney disease; D69.6 Thrombocytopenia, unspecified; D63.8 Anemia in other chronic diseases classified elsewhere; Z95.1 Presence of aortocoronary bypass graft; I70.0 Atherosclerosis of aorta; K21.9 Gastro-esophageal reflux disease without esophagitis; I25.119 Atherosclerotic heart disease of native coronary artery with unspecified angina pectoris; I48.91 Unspecified atrial fibrillation; Z88.2 Allergy status to sulfonamides; Z88.5 Allergy status to narcotic agent; Z91.013 Allergy to seafood; I49.9 Cardiac arrhythmia, unspecified; I87.2 Venous insufficiency (chronic) (peripheral); L85.3 Xerosis cutis; M20.41 Other hammer toe(s) (acquired), right foot; M20.42 Other hammer toe(s) (acquired), left foot; N18.9 Chronic kidney disease, unspecified; I27.20 Pulmonary hypertension, unspecified; N40.0 Benign prostatic hyperplasia without lower urinary tract symptoms; Z66 Do not resuscitate; Z86.79 Personal history of other diseases of the circulatory system; Z87.891 Personal history of nicotine dependence; Z95.2 Presence of prosthetic heart valve; Z99.2 Dependence on renal dialysis; L89.626 Pressure-induced deep tissue damage of left heel; L89.616 Pressure-induced deep tissue damage of right heel; M62.562 Muscle wasting and atrophy, not elsewhere classified, left lower leg; M62.561 Muscle wasting and atrophy, not elsewhere classified, right lower leg
CPT/HCPCS: 36415; 36600; 71045-TC; 78582; 80048-TC; 80053-TC; 80061-TC; 80076-TC; 82728-TC; 82803-TC; 82962-TC; 83540-TC; 83615-TC; 83735-TC; 83880; 84100-TC; 84155; 84165; 84439-TC; 84443-TC; 84484-TC; 85025-TC; 85378-TC; 85610-TC; 86140-TC; 86704; 86705; 86706; 86803; 87040-TC; 87081-TC; 87340; 90732; 90935-TC; 92526; 92611-TC; 93307-TC; 94660; 94799-TC; A4217; A6253; A6403; A6407; A9540; A9567; C1750; C9113; C9803; G0378; J0456; J0690; J0696; J1644; J1650; J1815; J1940; J1956; J2060; J2704; J2920; J2930; J3010; J3490; J7030; J7050; J7060; Q2036; U0003